=== PATIENT | female | born 1945 | race Caucasian/White ===

== ENCOUNTER 2017-05-13 09:21 | Emergency (ER) | payer OTHER ==
[~2017-05-13 09:21] MED LIST: ASPCH81X PO; BSP/10; CALCCHW PO; CRAN1TAB6 PO; DSY100 PO; EFFSR150 PO; KLN5 PO; METO-157 PO; MULT-506 PO; PRT/40 PO
[2017-05-13 09:26] VITALS: Ht 167.6 cm
[2017-05-13] MEDS ORDERED: SODIUM CHLORIDE 0.9% 1000ML 1,000 ML IV STA ×3 (09:39→13:22)
[2017-05-13] MEDS ORDERED: KETOROLAC TROMETHAMINE 30 MG/ML VIAL IV STA ×2 (09:42→15:37)
[2017-05-13] MEDS ORDERED: ONDANSETRON INJ 2 MG/ML 2 ML VIAL IV STA (09:42)
[2017-05-13] MEDS ORDERED: ALPRAZOLAM 0.5 MG TAB PO STA ×2 (09:51→14:47)
--- NOTE | 2017-05-13 10:00 | EMERGENCY ROOM VISIT NOTE ---
History Report prepared by Veronika: Laura Lindsay Under the Supervision of: Dr. Mir Sanchez M.D. First contact with patient: 09:34 Chief Complaint: URINARY SYMPTOMS Stated Complaint: BACK PAIN, NAUSEA, RT LEG PAIN-CATH'S HERSELF History of Present Illness The patient is a 72 year old female who presents to the Emergency Room with complaints of an episode of urinary symptoms starting four days ago. She describes that pain as a pressure. She currently rates her pain as a 8/10 in severity. She states that she feels like she has a full bladder, but she self- catheterized 45 minutes ago. The patient states that she was given Bactrim by her PCP on Wednesday, but has been too sick to keep it down. She states that she vomited twice this morning. The patient notes that she took Zofran 3 hours ago with no relief. She reports that she has a history of back pain and left knee pain. She reports that she did follow up with a physical therapist. The patient complains of diaphoresis, chills, nausea, abdominal pain, and constipation. The patient denies fever, cough, congestion, melena, and hematochezia. She notes a history of urinary tract infections. Source of History: patient Onset: four days ago Position: other (global) Symptom Intensity: 8/10 Quality: pressure Timing: other (episode) Associated Symptoms: + chills, + diaphoresis, + nausea, + vomiting, + abdominal pain, + back pain, No fevers, No cough, No melena, No hematochezia Note: The patient complains of constipation. The patient denies congestion. Review of Systems See HPI for pertinent positives and negatives. A total of ten systems were reviewed and were otherwise negative. Past Medical & Surgical Medical Problems: (1) Acute pyelonephritis (2) Acute urinary tract infection (3) Arthritis (4) Benign hypertension (5) Depression (6) Diverticular disease of colon (7) Gastroesophageal reflux disease (8) Hiatal hernia (9) History of - tubal ligation (10) history of uterus suspension (11) Hyperlipidemia (12) Neurogenic bladder (13) Osteoporosis (14) Pyelonephritis (15) repair of left ureter Surgical Problems: (1) History of appendectomy Family History Cancer Diabetes mellitus Heart disease Social History Smoking Status: Never Smoker Alcohol Use: none Drug Use: none Marital Status: Housing Status: lives with significant other Occupation Status: retired Current/Historical Medications Scheduled Alprazolam (Xanax), 0.25 MG PO QPM Aspirin (Aspirin Ec), 81 MG PO DAILY Cranberry (Vaccinium Macrocarp (Cranberry), 1 CAP PO TID Multivitamin (Multivitamin), 1 TAB PO DAILY Sertraline Hcl (Zoloft), 200 MG PO DAILY Scheduled PRN Ibuprofen Tab (Motrin), 800 MG PO Q8H PRN for Pain Allergies Coded Allergies: Hydrocodone (Unverified Allergy, Intermediate, HIVES, ITCH, 05/13/17) Oxycodone (Unverified Allergy, Intermediate, HIVES, ITCH, 05/13/17) LONRA Inhibitors (Verified Allergy, Unknown, Cough., 06/16/14) Codeine (Verified Allergy, Unknown, ., 06/16/14) Morphine and Related (Verified Allergy, Unknown, Shakes and vomiting., ) Nitrofurantoin (Verified Allergy, Unknown, Nausea/vomiting., 06/16/14) Physical Exam Vital Signs Date Time Temp Pulse Resp B/P (MAP) Pulse Ox O2 Delivery O2 Flow Rate FiO2 05/13/17 17:00 36.7 86 20 144/90 98 05/13/17 15:52 86 20 148/99 98 Room Air 05/13/17 14:45 94 24 167/101 96 Room Air 05/13/17 12:20 94 22 158/90 95 Room Air 05/13/17 09:26 36.7 107 18 124/80 99 Room Air Physical Exam GENERAL: Awake, alert, anxious-appearing, in no distress. Pain out of proportion to exam. HENT: Normocephalic, atraumatic. Dry mucus membranes. . EYES: Normal conjunctiva. Sclera non-icteric. NECK: Supple. No nuchal rigidity. FROM. No JVD. RESPIRATORY: Clear to auscultation. CARDIAC: Regular rate, normal rhythm. Extremities warm and well perfused. Pulses equal. ABDOMEN: Soft, non-distended. Generalized tenderness. Distractible. No rebound or guarding. No masses. RECTAL: Deferred. MUSCULOSKELETAL: Chest examination reveals no tenderness. The back is symmetrical on inspection without obvious abnormality. There is distractible left CVA tenderness to palpation. No joint edema. LOWER EXTREMITIES: Calves are equal size bilaterally and non-tender. No edema. No discoloration. No significant swelling or warmth in knees or lower extremities. NEURO: Normal sensorium. No sensory or motor deficits noted. SKIN: No rash or jaundice noted. Medical Decision & Procedures ER Provider Diagnostic Interpretation: Radiology results as stated below per my review and radiologist interpretation: CT ABD/PELVIS IV CONTRAST ONLY CLINICAL HISTORY: left flank pain - r/o renal stone LEFT-SIDED ABDOMINAL PAIN COMPARISON STUDY: 06/16/2014 TECHNIQUE: Following the IV administration of 118 mL of Optiray-320, CT scan of the abdomen and pelvis was performed from the lung bases to the proximal femurs. Images are reviewed in the axial, sagittal, and coronal planes. IV contrast was administered without complication. A dose lowering technique was utilized adhering to the principles of ALARA. CT DOSE: 457.13 mGycm FINDINGS: Lower chest: There is bibasilar dependent interstitial thickening. Liver: The contrast-enhanced liver is normal in size, contour, and attenuation. There is no intrahepatic biliary ductal dilatation. The hepatic veins and portal veins are patent. Gallbladder: Surgically absent. There is mild dilatation the common bile duct which measures a centimeter Spleen: Normal in size and attenuation. Pancreas: Unremarkable. Adrenal glands: Unremarkable. Kidneys: Each kidney demonstrates a prominent extrarenal pelvis, similar to the prior May 2014 study. There is no significant mid or distal ureteral dilatation. No bladder or ureteral calculi are visualized. There are left-sided retroperitoneal surgical clips in the region of the left ureteropelvic junction. Bowel: There are no transition zones to indicate bowel obstruction. There is moderate sigmoid diverticulosis. There is bowel wall thickening likely secondary to peridiverticular muscular hypertrophy. There are no acute peridiverticular inflammatory changes. There are no findings to indicate acute appendicitis. Peritoneum: There is no intraperitoneal free air or abdominal ascites. Vasculature: The abdominal aorta is normal in course and caliber. Adenopathy: None. Pelvic viscera: There is evidence of pelvic floor relaxation. Skeletal structures: No destructive osseous lesions are seen. IMPRESSION: 1. Diverticulosis. No evidence of acute diverticulitis 2. No evidence of bowel obstruction. No evidence of free air 3. Each kidney demonstrates a prominent extrarenal pelvis, similar to the preceding study. 4. No obstructing calculi are visualized 5. Pelvic floor relaxation. Electronically signed by: Micha Roberts M.D. 05/13/2017 12:46 PM Dictated Date/Time: 05/13/2017 12:40 PM Laboratory Results 05/13/17 10:15 Red Blood Count 4.75, Mean Corpuscular Volume 89.3, Mean Corpuscular Hemoglobin 31.8, Mean Corpuscular Hemoglobin Concent 35.6, Mean Platelet Volume 8.9, Neutrophils (%) (Auto) 77.0, Lymphocytes (%) (Auto) 14.9, Monocytes (%) (Auto) 7.6, Eosinophils (%) (Auto) 0.1, Basophils (%) (Auto) 0.1, Neutrophils # (Auto) 7.52, Lymphocytes # (Auto) 1.45, Monocytes # (Auto) 0.74, Eosinophils # (Auto) 0.01, Basophils # (Auto) 0.01 05/13/17 10:15 Test 05/13/17 10:15 05/13/17 12:20 05/13/17 14:58 White Blood Count 9.76 K/uL (4.8-10.8) Red Blood Count 4.75 M/uL (4.2-5.4) Hemoglobin 15.1 g/dL (12.0-16.0) Hematocrit 42.4 % (37-47) Mean Corpuscular Volume 89.3 fL (80-100) Mean Corpuscular Hemoglobin 31.8 pg (25-34) Mean Corpuscular Hemoglobin Concent 35.6 g/dl (32-36) Platelet Count 291 K/uL (130-400) Mean Platelet Volume 8.9 fL (7.4-10.4) Neutrophils (%) (Auto) 77.0 % Lymphocytes (%) (Auto) 14.9 % Monocytes (%) (Auto) 7.6 % Eosinophils (%) (Auto) 0.1 % Basophils (%) (Auto) 0.1 % Neutrophils # (Auto) 7.52 K/uL (1.4-6.5) Lymphocytes # (Auto) 1.45 K/uL (1.2-3.4) Monocytes # (Auto) 0.74 K/uL (0.11-0.59) Eosinophils # (Auto) 0.01 K/uL (0-0.5) Basophils # (Auto) 0.01 K/uL (0-0.2) RDW Standard Deviation 43.1 fL (36.4-46.3) RDW Coefficient of Variation 13.2 % (11.5-14.5) Immature Granulocyte % (Auto) 0.3 % Immature Granulocyte # (Auto) 0.03 K/uL (0.00-0.02) Anion Gap 10.0 mmol/L (3-11) Estimated GFR () 52.3 Estimated GFR (Non- 45.1 BUN/Creatinine Ratio 14.2 (10-20) Calcium Level 10.5 mg/dl (8.5-10.1) Total Bilirubin 0.4 mg/dl (0.2-1) Direct Bilirubin 0.1 mg/dl (0-0.2) Aspartate Amino Transf (AST/SGOT) 21 U/L (15-37) Alanine Aminotransferase (ALT/SGPT) 24 U/L (12-78) Alkaline Phosphatase 97 U/L (45-117) Total Protein 8.5 gm/dl (6.4-8.2) Albumin 4.5 gm/dl (3.4-5.0) Lipase 212 U/L (73-393) Urine Color YELLOW Urine Appearance CLEAR (CLEAR) Urine pH 8.5 (4.5-7.5) Urine Specific [place] 1.012 (1.000-1.030) Urine Protein NEG (NEG) Urine Glucose (UA) NEG (NEG) Urine Ketones TRACE (NEG) Urine Occult Blood TRACE (NEG) Urine Nitrite NEG (NEG) Urine Bilirubin NEG (NEG) Urine Urobilinogen NEG (NEG) Urine Leukocyte Esterase NEG (NEG) Urine WBC (Auto) 0 /hpf (0-5) Urine RBC (Auto) 0-4 /hpf (0-4) Urine Hyaline Casts (Auto) 0 /lpf (0-5) Urine Epithelial Cells (Auto) 5-10 /lpf (0-5) Urine Bacteria (Auto) NEG (NEG) Lactic Acid Level 1.3 mmol/L (0.4-2.0) Laboratory results reviewed by me Medications Administered Medications (Trade) Dose Ordered Sig/Debbie Route Start Time Stop Time Status Last Admin Dose Admin Sodium Chloride 1,000 ml @ 999 mls/hr Q1H1M STAT IV 05/13/17 09:39 05/13/17 10:39 DC 05/13/17 10:48 999 MLS/HR Ondansetron HCl (Zofran Inj) 4 mg NOW STAT IV 05/13/17 09:42 05/13/17 09:44 DC 05/13/17 10:15 4 MG Ketorolac Tromethamine (Toradol Inj) 30 mg NOW STAT IV 05/13/17 09:42 05/13/17 09:44 DC 05/13/17 10:15 30 MG Alprazolam (Xanax Tab) 0.25 mg NOW STAT PO 05/13/17 09:51 05/13/17 09:52 DC 05/13/17 10:14 0.25 MG Sodium Chloride 1,000 ml @ 999 mls/hr Q1H1M STAT IV 05/13/17 11:37 05/13/17 12:37 DC 05/13/17 12:09 999 MLS/HR Fentanyl Citrate (Fentanyl Inj) 50 mcg NOW STAT IV 05/13/17 11:37 05/13/17 11:39 DC 05/13/17 12:06 50 MCG Sodium Chloride 1,000 ml @ 999 mls/hr Q1H1M STAT IV 05/13/17 13:22 05/13/17 14:22 DC 05/13/17 14:54 999 MLS/HR Alprazolam (Xanax Tab) 0.25 mg NOW STAT PO 05/13/17 14:47 05/13/17 14:48 DC 05/13/17 14:54 0.25 MG Ketorolac Tromethamine (Toradol Inj) 30 mg NOW STAT IV 05/13/17 15:37 05/13/17 15:38 DC 05/13/17 15:48 30 MG ED Course 0938: The patient was evaluated in room A11B. A complete history and physical exam was performed. 0939: Ordered NSS 1000 ml @ 999 mls/hr IV. 0942: Ordered Toradol Inj 30 mg IV, Zofran Inj 4 mg IV. 0951: Ordered Xanax Tab 0.25 mg PO. 1137: Ordered Fentanyl Inj 50 mcg IV, NSS 1000 ml @ 999 mls/hr IV. 1322: Ordered NSS 1000 ml @ 999 mls/hr IV. 1447: Ordered Xanax Tab 0.25 mg PO. 1537: Ordered Toradol Inj 30 mg IV. 1640: I reevaluated the patient. Discussed results and discharge instructions: She verbalized understanding and agreement. The patient is ready for discharge. Medical Decision I reviewed the patient's past medical history, medications, and the nursing notes as described above. Differential diagnoses include UTI, interstitial cystitis, kidney stone, diverticulitis, obstruction, sciatica, neuropathy. Patient is a 72-year-old woman with a past medical history of self bladder catheterizations followed by urology who presents to emergency department with worsening suprapubic pain over the past 4-5 days per history of present illness. Arrival the patient appears anxious because she forgot to take her alprazolam this morning. Otherwise on exam the patient exhibits pain out of proportion to exam in her left CVA and abdomen. BM was yesterday. Will check labs and urine. IV fluids analgesia and antiemetics and reassess. Patient with a mildly elevated lactate to 2.7 however WBC within normal limits. Labs otherwise unremarkable including UA negative for infection. However considering the patient's elevated lactate CT scan was done was negative for any acute findings. Considering reassuring imaging and patient was clinically dry exam take likely elevated secondary to dehydration. After IV fluid hydration lactate was repeated and clear to within normal limits. Patient reassessed and was feeling improved. Still some residual pain. Symptoms likely exacerbated musculoskeletal pain in the setting of dehydration. Patient is followed closely by urology and so patient will follow up for reevaluation and possible cystoscopy for blood in urine, although likely secondary to chronic self-catheterization. Findings and plan for follow-up d/w patient. Patient agreeable and d/c'd per discharge instructions. Medication Reconcilliation Current Medication List: was personally reviewed by me Blood Pressure Screening Patient's blood pressure: Elevated blood pressure Blood pressure disposition: Elevated BP felt to be situational Impression Primary Impression: Abdominal pain Scribe Attestation The scribe's documentation has been prepared under my direction and personally reviewed by me in its entirety. I confirm that the note above accurately reflects all work, treatment, procedures, and medical decision making performed by me. Departure Information Dispostion Home / Self-Care Prescriptions Ibuprofen Tab (MOTRIN) 800 Mg Tab 800 MG PO Q8H Y for Pain for 7 Days, #21 TAB Prov: Mir Sanchez M.D. 05/13/17 Referrals No Doctor, Assigned (PCP) Forms HOME CARE DOCUMENTATION FORM, IMPORTANT VISIT INFORMATION Patient Instructions Abdominal Pain - [facility], My [facility] Additional Instructions Please follow up with your primary care physician in the next 1-3 days as well as with your urologist. Your labs showed the were dehydrated. Otherwise, your exam, lab results, CT scan did not show signs of an emergent condition at this time. Make sure to stay hydrated. Ibuprofen as needed for pain. Return to the emergency department for worsening symptoms as described in the accompanying instructions.
[2017-05-13 10:28] LABS: BASO % 0.1 %; BASO ABS # 0.01 K/uL (0-0.2); COMPLETE YES; EOS % 0.1 %; HEMATOCRIT 42.4 % (37-47); IG% 0.3 %; LYMPH % 14.9 %; LYMPH ABS # 1.45 K/uL (1.2-3.4); MEAN CELL VOLUME 89.3 fL (80-100); MEAN CORPUSCULAR HEMOGLOBIN 31.8 pg (25-34); MEAN CORPUSCULAR HGB CONC 35.6 g/dl (32-36); MEAN PLATELET VOLUME 8.9 fL (7.4-10.4); MONO % 7.6 %; PLATELET COUNT 291 K/uL (130-400); RED BLOOD COUNT 4.75 M/uL (4.2-5.4); WHITE BLOOD COUNT 9.76 K/uL (4.8-10.8)
[2017-05-13 10:48] LABS: ALT/SGPT 24 U/L (12-78); BLOOD UREA NITROGEN 17 mg/dl (7-18); BUN/CREATININE RATIO 14.2 (10-20); CALCIUM 10.5 mg/dl (8.5-10.1); CARBON DIOXIDE 22 mmol/L (21-32); CHLORIDE 101 mmol/L (98-107); GLUCOSE 107 mg/dl (70-99); POTASSIUM 3.9 mmol/L (3.5-5.1); SODIUM 133 mmol/L (136-145)
[2017-05-13 10:51] LABS: ALKALINE PHOSPHATASE 97 U/L (45-117); AST/SGOT 21 U/L (15-37)
[2017-05-13] MEDS ORDERED: ASPI81TA28 PO (11:09)
[2017-05-13] MEDS ORDERED: CRAN1TAB3 PO (11:09)
[2017-05-13] MEDS ORDERED: ALPR0.25 PO (11:09)
[2017-05-13] MEDS ORDERED: SERT100T PO (11:09)
[2017-05-13] MEDS ORDERED: MULT-506 PO (11:09)
[2017-05-13] MEDS ORDERED: FENTANYL CITRATE INJ 50 MCG/1 ML 2 ML VIAL IV STA (11:37)
[2017-05-13] MEDS ORDERED: OPTIRAY 320 IV PRN (11:45)
[2017-05-13 12:37] LABS: MANUAL MICROSCOPIC REQUIRED? NO; REVIEW REQ? NO; URINE APPEARANCE CLEAR (CLEAR); URINE BILIRUBIN NEG (NEG); URINE COLOR YELLOW; URINE NITRITE NEG (NEG); URINE PH 8.5 (4.5-7.5); URINE SPECIFIC GRAVITY 1.012 (1.000-1.030); UROBILINOGEN NEG (NEG); ZZUR CULT IF INDIC CLEAN CATCH NO
--- NOTE | 2017-05-13 12:47 | DIAGNOSTIC IMAGING REPORT ---
CT ABD/PELVIS IV CONTRAST ONLY CLINICAL HISTORY: left flank pain - r/o renal stone LEFT-SIDED ABDOMINAL PAIN COMPARISON STUDY: 06/16/2014 TECHNIQUE: Following the IV administration of 118 mL of Optiray-320, CT scan of the abdomen and pelvis was performed from the lung bases to the proximal femurs. Images are reviewed in the axial, sagittal, and coronal planes. IV contrast was administered without complication. A dose lowering technique was utilized adhering to the principles of ALARA. CT DOSE: 457.13 mGycm FINDINGS: Lower chest: There is bibasilar dependent interstitial thickening. Liver: The contrast-enhanced liver is normal in size, contour, and attenuation. There is no intrahepatic biliary ductal dilatation. The hepatic veins and portal veins are patent. Gallbladder: Surgically absent. There is mild dilatation the common bile duct which measures a centimeter Spleen: Normal in size and attenuation. Pancreas: Unremarkable. Adrenal glands: Unremarkable. Kidneys: Each kidney demonstrates a prominent extrarenal pelvis, similar to the prior May 2014 study. There is no significant mid or distal ureteral dilatation. No bladder or ureteral calculi are visualized. There are left-sided retroperitoneal surgical clips in the region of the left ureteropelvic junction. Bowel: There are no transition zones to indicate bowel obstruction. There is moderate sigmoid diverticulosis. There is bowel wall thickening likely secondary to peridiverticular muscular hypertrophy. There are no acute peridiverticular inflammatory changes. There are no findings to indicate acute appendicitis. Peritoneum: There is no intraperitoneal free air or abdominal ascites. Vasculature: The abdominal aorta is normal in course and caliber. Adenopathy: None. Pelvic viscera: There is evidence of pelvic floor relaxation. Skeletal structures: No destructive osseous lesions are seen. IMPRESSION: 1. Diverticulosis. No evidence of acute diverticulitis 2. No evidence of bowel obstruction. No evidence of free air 3. Each kidney demonstrates a prominent extrarenal pelvis, similar to the preceding study. 4. No obstructing calculi are visualized 5. Pelvic floor relaxation. Electronically signed by: Micha Roberts M.D. 05/13/2017 12:46 PM Dictated Date/Time: 05/13/2017 12:40 PM
[2017-05-13] MEDS ORDERED: IBUP-1451 PO (16:36)
[2017-05-13 17:00] VITALS: BP 144/90; PULSE 86; TEMP 36.7; O2SAT 98
== END 2017-05-13 17:00 | disposition home or self-care (01) ==
LOC: C.EDB 09:25 → C.EDA 17:00
DX: R10.9 Unspecified abdominal pain (principal); K57.90 Diverticulosis of intestine, part unspecified, without perforation or abscess without bleeding; M54.9 Dorsalgia, unspecified; R11.2 Nausea with vomiting, unspecified; K59.00 Constipation, unspecified; M19.90 Unspecified osteoarthritis, unspecified site; I10 Essential (primary) hypertension; F32.9 Major depressive disorder, single episode, unspecified; K21.9 Gastro-esophageal reflux disease without esophagitis; K44.9 Diaphragmatic hernia without obstruction or gangrene; Z98.51 Tubal ligation status; E78.5 Hyperlipidemia, unspecified; M81.0 Age-related osteoporosis without current pathological fracture; N31.9 Neuromuscular dysfunction of bladder, unspecified; Z79.82 Long term (current) use of aspirin; Z83.3 Family history of diabetes mellitus

== ENCOUNTER 2018-12-27 07:43 | Inpatient (IN) ==
--- NOTE | 2018-11-15 08:55 | Anesthesiology Consultation ---
Date of Service November 15, 2018 Assessment & Plan (1) Encounter for pre-operative examination: Plan: - Will plan to repeat BMP the AM day of surgery. Chart Review Chart Review: Acceptable Risk for Surgery and Patient seen in Pre Admission Testing Consults Requested none Teaching & Discussion Pre-Anesthesia Teaching/Discussion Notes: Instructed NPO after midnight before surgery, except medications with 15 cc of water. Medication instructions provided according to the PAT guidelines. History Surgery Operation Date: 11/29/18 10:15 Proposed Procedures p Left Total Knee Arthroplasty - Farhan Blackmon DO Height/Weight Height: 5 ft 5 in Weight: 69.6 kg Allergies Allergy/AdvReac Type Severity Reaction Status Date / Time hydrocodone Allergy Intermediate HIVES, ITCH Verified 11/04/18 15:26 oxycodone Allergy Intermediate HIVES, ITCH Verified 11/04/18 15:26 codeine Allergy Unknown NAUSEA, Verified 11/04/18 15:26 VOMITING, ITCHING morphine Allergy Unknown SEVERE Verified 11/04/18 15:26 CONSTIPATION nitrofurantoin AdvReac Unknown Nausea/vomi Verified 11/04/18 15:26 ting. Medications Home Medications Medication Instructions Recorded Confirmed Last Taken calcium carbonate [Calcium 500] 500 mg PO QAM 11/04/18 11/04/18 Unknown cranberry 500 mg PO TID 11/04/18 11/04/18 Unknown multivitamin 1 cap PO QAM 11/04/18 11/04/18 Unknown omeprazole magnesium [Prilosec OTC] 20 mg PO QAM 11/04/18 11/04/18 Unknown sertraline 200 mg PO QAM 11/04/18 11/04/18 Unknown alprazolam [Xanax] 0.5 mg PO BID PRN 11/15/18 11/15/18 Unknown Past Medical History Medical History GERD (gastroesophageal reflux disease) Gastroparesis Hiatal hernia History of neurogenic bladder PT CAN URINATE ON OWN SMALL AMTS. PT SELF CATH'S TID. Osteoarthritis Transient ischemic attack (TIA) X3. LAST TIA APPROX 4-5 YEARS AGO. NO RESIDUAL EFFECT. Past Surgical History Surgical History History of bilateral tubal ligation History of cholecystectomy History of kidney surgery PT HAD A SURGERY IN FOR AN OBSTRUCTION/'KINK" OF THE URETER, INSISION MADE THROUGH FLANK Status post wrist surgery RIGHT WRIST - DR. ROSS. Past Anesthesia History No Hx of Anesthesia Complications and No Family Hx of Anesthesia Complications History of PONV No Motion Sickness Screening History of Motion Sickness: No Social History Smoking Status: Never smoker Do You Dip or Chew Tobacco: No Hx Alcohol Use: Yes Alcohol type: other alcohol intake frequency: holidays/special occasions only Alcohol Intake Frequency Comment: RARE Hx Substance Use: No substance use type: does not use Exercise / Class Metabolic Activity II 4-5 Yardwork/Stairs/Walk up hill (Minimal due to knee pain. Able to climb FOS, although it is painful in her knees. Denies CP or SOB. ) Review of Systems Patient denies chest pain, shortness of breath, dyspnea on exertion, cough, wheezing, palpitations. +joint pain (knees) +acid reflux (controlled by medications) Physical Exam Vital Signs BP: 138/91 P: 95 R: 18 T: 98.2 SPO2: 98% on RA ENMT Mouth: + dentures (Full set on top and partial on bottom) Thyromental Distance: > or= 3.5 Finger Breadths (4) Mallampati Class: II Neck normal visual inspection and trachea midline; neck extension not limited Respiratory normal respiratory effort Auscultation: lungs clear to auscultation bilaterally Cardiovascular Rate/Rhythm: regular rate and regular rhythm Heart Sounds: no murmur Vessels: no carotid bruit Neurologic moves all extremities Psychiatric Orientation: alert and oriented x 3 Testing Electrocardiogram Date: 11/15/18 Findings: + NSR @ (84) and + no change from (06/28/14) Chest X-Ray Date: 11/15/18 Findings: + NAD FINDINGS: The cardiac and mediastinal contours are normal. There is no evidence of focal pulmonary consolidation. There is no evidence of failure. No pleural effusions are visualized. There is a nonspecific calcification visualized within the upper anterior abdomen on the lateral projection. There is no corresponding finding on the PA film, and therefore this is potentially related to an overlying artifact. IMPRESSION: No active disease in the chest. Laboratory Results 11/15/18 09:40 11/15/18 09:40 Blood Type O Positive 11/15/18 09:40 Antibody Screen NEGATIVE 11/15/18 09:40 PT 11.0 Seconds (9.0-12.0) 11/15/18 09:40 INR 1.1 (0.9-1.1) 11/15/18 09:40 APTT 31.2 Seconds (21.0-31.0) H 11/15/18 09:40 Hemoglobin A1c 5.6 % (4.5-5.6) 11/15/18 09:40 Urine Color Yellow 11/15/18 09:40 Urine Appearance Clear (Clear) 11/15/18 09:40 Urine pH 6.5 (4.5-7.5) 11/15/18 09:40 Ur Specific [place] 1.013 (1.000-1.030) 11/15/18 09:40 Urine Protein Negative (Negative) 11/15/18 09:40 Urine Glucose (UA) Negative (Negative) 11/15/18 09:40 Urine Ketones 2+ (Negative) H 11/15/18 09:40 Urine Nitrite Negative (Negative) 11/15/18 09:40 Ur Leukocyte Esterase 2+ (Negative) H 11/15/18 09:40 Urine WBC (Auto) 10-30 /hpf (0-5) H 11/15/18 09:40 Urine RBC (Auto) 0-4 /hpf (0-4) 11/15/18 09:40 U Hyaline Cast (Auto) 1-5 /lpf (0-5) 11/15/18 09:40 U Epithel Cells (Auto) 0-5 /lpf (0-5) 11/15/18 09:40 Urine Bacteria (Auto) 4+ (Negative) H 11/15/18 09:40 11/15/18 09:40 Urine Culture - Final Urine,Clean Catch Escherichia coli ESBL Dr. Blackmon's office notified of UTI, elevated WBC, low NA and low Cl. Will plan to repeat BMP the AM day of surgery.
--- NOTE | 2018-11-15 08:56 | PAT Medication Instructions ---
Medication Instructions Date of Service November 15, 2018 Home Medications calcium carbonate [Calcium 500] 500 mg PO QAM cranberry 500 mg PO TID multivitamin 1 cap PO QAM omeprazole magnesium [Prilosec] 20 mg PO QAM sertraline 200 mg PO QAM alprazolam [Xanax] 0.5 mg PO BID NEEDED STOP taking 2 weeks before surgery calcium carbonate [Calcium 500] 500 mg PO QAM DO NOT take the morning of surgery calcium carbonate [Calcium 500] 500 mg PO QAM multivitamin 1 cap PO QAM Take morning of surgery With a small sip of water, OTHERWISE NOTHING TO EAT OR DRINK AFTER MIDNIGHT: omeprazole magnesium [Prilosec] 20 mg PO QAM sertraline 200 mg PO QAM alprazolam [Xanax] 0.5 mg PO BID NEEDED Take evening before surgery alprazolam [Xanax] 0.5 mg PO BID NEEDED Other Notes If you have any questions please call us at [phone] or [phone] or [phone] or [phone]
--- NOTE | 2018-11-15 10:15 | XRay Report ---
XR chest Pre-admission PA/Lat CLINICAL HISTORY: Preoperative chest COMPARISON STUDY: 01/17/2014 FINDINGS: The cardiac and mediastinal contours are normal. There is no evidence of focal pulmonary co nsolidation. There is no evidence of failure. No pleural effusions are visualized.[ There is a nonspe cific calcification visualized within the upper anterior abdomen on the lateral projection. There is no corresponding finding on the PA film, and therefore this is potentially related to an overlying ar tifact. IMPRESSION: No active disease in the chest. Electronically signed by: Micha Roberts M.D. 11/15/2018 10:13 AM
[2018-11-15 10:56] LABS: Basophils # (auto) 0.01 K/uL (0-0.2); Basophils % (auto) 0.1 %; Eosinophils # (auto) 0.11 K/uL (0-0.5); Hematocrit (blood only) 41.8 % (37-47); Hemoglobin 14.5 g/dL (12.0-16.0); Immature Granulocytes # (auto) 0.02 K/uL (0.00-0.02); Immature Granulocytes % (auto) 0.2 %; Lymphocytes # (auto) 1.52 K/uL (1.2-3.4); Lymphocytes % (auto) 13.4 %; Mean Corpuscular Hgb Conc 34.7 g/dL (32-36); Mean Corpuscular Volume 89.9 fL (80-100); Mean Platelet Volume 9.6 fL (7.4-10.4); Monocytes # (auto) 0.98 K/uL (0.11-0.59); Monocytes % (auto) 8.6 %; Neutrophils # (auto) 8.71 K/uL (1.4-6.5); Neutrophils % (auto) 76.7 %; Platelet Count 261 K/uL (130-400); RDW Coefficient of Variation 14.3 % (11.5-14.5); RDW Standard Deviation 46.8 fL (36.4-46.3); Red Blood Count 4.65 M/uL (4.2-5.4); White Blood Count 11.35 K/uL (4.8-10.8)
[2018-11-15 11:04] LABS: Appearance Urine Clear (Clear); Bacteria Urine Automated 4+ (Negative); Bilirubin Urine Negative (Negative); Blood Urine Negative (Negative); Color Urine Yellow; Epithelial Cell Urine Auto 0-5 /lpf (0-5); Glucose Urine UA Negative (Negative); Ketones Urine 2+ (Negative); Leukocyte Esterase Urine 2+ (Negative); Nitrite Urine Negative (Negative); Protein Urine Negative (Negative); RBC Urine Automated 0-4 /hpf (0-4); Specific Gravity Urine 1.013 (1.000-1.030); Urobilinogen Urine Negative (Negative); pH Urine 6.5 (4.5-7.5)
[2018-11-15 11:22] LABS: BUN Creatinine Ratio 16.2 (10-20); Calcium 9.2 mg/dl (8.5-10.1); Creatinine Clr Calc Pharmacy 61.3 ml/min; Est GFR (African American) 84.8; Est GFR (Non-African American) 73.1; Potassium 3.4 mmol/L (3.5-5.1)
[2018-11-15 11:37] LABS: INR 1.1 (0.9-1.1); Partial Thromboplastin Ratio 1.2; Partial Thromboplastin Time 31.2 Seconds (21.0-31.0)
[2018-11-15 11:51] LABS: Estimated Average Glucose 114 mg/dl; Hemoglobin A1C 5.6 % (4.5-5.6)
--- NOTE | 2018-12-26 17:44 | History & Physical Report ---
Date of Service December 26, 2018 Assessment & Plan (1) Left knee DJD: I have indicated the patient for left total knee replacement. The risks, benefits and complications of surgery were explained to the patient which include but not limited to infection, acute blood loss, DVT/PE, injury to nerv es, vessels, bone, soft tissue, arthrofibrosis, chronic pain, failure of the prosthesis, knee dislocation, leg length discrepancy, need for additional surgery, cardiac and pulmonary events and . The patient wished to proceed with surgery and informed consent was obtained at this time. We will plan for ASA BID post-operatively for DVT prophylaxis. Upon discharge the patient will be discharged home with home health services. Appropriate clearances by PCP and Urology were obtained. Patient is Jeh[employer]'s Witness, consented for refusal of blood products. Understands risks. History of Present Illness Chief Complaint: Left knee pain/djd Primary Care Provider: Catalino Espinosa The patient is a 73 year old female who presents with complaints of severe left knee pain and DJD. The patient has failed outpatient conservative treatments to this point which included NSAIDs, corticosteroid and MARTI injections, HEP and physical therapy. The patient's pain and limited function have progressed to the point where they severely hinder their activities of daily living and they no longer tolerate exercise programs. They are requesting to proceed with total knee replacement surgery. Allergies Allergy/AdvReac Type Severity Reaction Status Date / Time hydrocodone Allergy Intermediate HIVES, ITCH Verified 12/27/18 08:16 oxycodone Allergy Intermediate HIVES, ITCH Verified 12/27/18 08:16 codeine Allergy Unknown NAUSEA, Verified 12/27/18 08:16 VOMITING, ITCHING morphine Allergy Unknown SEVERE Verified 12/27/18 08:16 CONSTIPATION nitrofurantoin AdvReac Unknown Nausea/vomi Verified 12/27/18 08:16 ting. Home Medications Home Medications Medication Instructions Recorded Confirmed Type calcium carbonate [Calcium 500] 500 mg PO QAM 11/04/18 12/27/18 History cranberry 500 mg PO TID 11/04/18 12/27/18 History multivitamin 1 cap PO QAM 11/04/18 12/27/18 History omeprazole magnesium [Prilosec OTC] 20 mg PO QAM 11/04/18 12/27/18 History sertraline 200 mg PO QAM 02/08/19 04/02/19 History alprazolam [Xanax] 0.5 mg PO BID PRN 11/15/18 12/27/18 History Past Med/Surg History Medical History GERD (gastroesophageal reflux disease) Gastroparesis Hiatal hernia History of neurogenic bladder PT CAN URINATE ON OWN SMALL AMTS. PT SELF CATH'S TID. Osteoarthritis Refusal of blood transfusions as patient is [facility] Transient ischemic attack (TIA) X3. LAST TIA APPROX 4-5 YEARS AGO. NO RESIDUAL EFFECT. Surgical History History of bilateral tubal ligation History of cholecystectomy History of kidney surgery PT HAD A SURGERY IN FOR AN OBSTRUCTION/'KINK" OF THE URETER, INSISION MADE THROUGH FLANK Status post wrist surgery RIGHT WRIST - DR. ROSS. Social History Preferred Language: Korean Communication Ability: Effective Firer Diesel Locomotive Required: No Beliefs That Will Affect Care: Tenriism Current Living Situation: Spouse Other Information That Helps Us Care for You: No Feels Safe at Home: Yes Safety Concerns: Feels Safe At This Time Smoking Status: Never smoker Hx Alcohol Use: Yes Hx Substance Use: No Review of Systems All systems reviewed & are unremarkable except as noted in HPI & below Physical Exam Physical Exam: LLE NVSI +EHL/FHL/TA/GS SILT grossly, +2 DP pulse, compartments soft NT, painful limited ROM, 0-90 degrees of flexion. Constitutional: WD/WN, vitals as above Eyes: PERRL, conjunctivae normal, anicteric sclerae ENMT: external ear and nose normal, oropharynx normal Neck: trachea midline, no thyromegaly Respiratory: normal respiratory effort, lungs clear to auscultation Cardiovascular: RRR, no murmur, no edema Gastrointestinal (Abdomen): normal bowel sounds, soft, nontender, no hepatosplenomegaly Musculoskeletal: no cyanosis or clubbing, extremities motor strength 5/5 Skin: no rashes, warm and dry Neurologic: patellar DTR's 2+ bilat, sensation intact Psychiatric: A+Ox3, euthymic affect Lymphatic: no cervical or axillary lymphadenopathy Results & Data Diagnostic Findings Multiple views of the knee demonstrates severe tricompartmental DJD with complete loss of the medial joint space. +osteophytes, +sclerosis, +subchondral cysts.
[~2018-12-27 07:43] MED LIST changes: +ACETAMINOPHEN 500 MG TAB PO SCH; -ASPCH81X PO; -BSP/10; +BUPIVACAINE 0.5 % 5 MG/1 ML PF 10ML VIAL ONE; -CALCCHW PO; +CEFAZOLIN 1000MG 1,000 MG/7.5 ML SYR IV SCH; -CRAN1TAB6 PO; +CeleBREX 200 MG CAP PO SCH; -DSY100 PO; -EFFSR150 PO; +FAMOTIDINE 20 MG TAB PO SCH; +GABAPENTIN 300 MG PO SCH; -KLN5 PO; +LR 500ML BOLUS, THEN 15ML/HR IV SCH; -METO-157 PO; -MULT-506 PO; -PRT/40 PO; +ROPIVACAINE 0.5% 5 MG/ML 30 ML VIAL ONE; +ROPIVACAINE 0.5% HCL/PF 150 MG, BUPIVACAINE 0.5% MPF 30 ML, EPINEPHrine 30MG/30ML (OR U... INFIL SCH; +TRANEXAMIC ACID 1,000 MG **IV Intra-op IV SCH; +TRANEXAMIC ACID 1,000 MG **IV Pre-op IV SCH; +dexAMETHasone 4 MG TAB PO SCH
[2018-12-27] MEDS ORDERED: BACITRACIN INJ 50,000 UNIT VIAL ONE (08:27)
[2018-12-27] MEDS ORDERED: ORTHO JOINT ANESTHETIC ONE (08:27)
[2018-12-27] MEDS ORDERED: POVIDONE-IODINE OP SOLN 30 ML BTL ONE (08:27)
[2018-12-27 09:20] LABS: BUN Creatinine Ratio 14.6 (10-20); Calcium 10.2 mg/dl (8.5-10.1); Creatinine Clr Calc Pharmacy 53.3 ml/min; Est GFR (African American) 75.5; Est GFR (Non-African American) 65.2; Potassium 4.2 mmol/L (3.5-5.1)
[2018-12-27] MEDS ORDERED: LIDOCAINE HCL 2% 2 ML VIAL/AMP(20MG/ML) INFIL ONE (09:43)
[2018-12-27] MEDS ORDERED: PROPOFOL IV EMULSION 10 MG/ML 20 ML VIAL IV ONE (09:43)
[2018-12-27] MEDS ORDERED: MIDAZOLAM HCL 1 MG/ML 2ML VIAL ONE (09:44)
[2018-12-27] MEDS ORDERED: fentaNYL citrate 100 MCG/2 ML VIAL ONE ×3 (09:44→11:44)
[2018-12-27] MEDS ORDERED: ATROPINE SULFATE 0.1 MG/ML 10ML SYR IV PRN (09:48)
[2018-12-27] MEDS ORDERED: fentaNYL citrate 100 MCG/2 ML VIAL IV PRN (09:48)
[2018-12-27] MEDS ORDERED: ePHEDrine sulfate 50 MG/ML AMP IV PRN (09:48)
[2018-12-27] MEDS ORDERED: ONDANSETRON INJ 2 MG/ML 2 ML VIAL IV PRN ×2 (09:48→15:12)
[2018-12-27] MEDS ORDERED: EPINEPHrine INJ 1 MG/ML AMP ONE (10:35)
--- NOTE | 2018-12-27 10:59 | History & Physical Bridge Note ---
Date of Service December 27, 2018 History & Physical Bridge Note I have examined the patient, reviewed the History & Physical and in the interval since the performance of the History & Physical I have noted the following changes of clinical significance: no changes noted
[2018-12-27] MEDS ORDERED: ePHEDrine sulfate 50 MG/ML AMP ONE (12:19)
[2018-12-27] MEDS ORDERED: PHENYLEPHRINE 100MCG/ML 5ML SYR ONE (12:19)
[2018-12-27] MEDS ORDERED: ePHEDrine sulfate 50 MG/ML SYR ONE (12:20)
--- NOTE | 2018-12-27 13:21 | Post Operative Brief Note ---
Immediate Post Op Note v1 Date of Surgery December 27, 2018 Pre & Post Diagnosis Operation Date: 11/29/18 09:25 <No data on this case meets the specified criteria> Operation Date: 12/27/18 10:15 Pre-Op Diagnosis: Left Knee Degenerative Joint Disease Post-Op Diagnosis: Left Knee Degenerative Joint Disease Procedure Operation Date: 11/29/18 09:25 <No data on this case meets the specified criteria> Operation Date: 12/27/18 10:15 Actual Procedures p Left Total Knee Arthroplasty(Left) - Farhan Blackmon DO Surgeon Farhan Blackmon, Tugboat Operator Rios Liriano Estimated Blood Loss 35 Findings Consistent with Post-Op Diagnosis Fluids 1500 cc LR Specimens proximal tibia, distal femur bone fragments Drains Ramírez Catheter (16fr silicone ramírez catheter placed without difficulty; ramírez demonstrates clear yellow urine. Output measured and recorded by anesthesia.) Anesthesia Type General Complications none Disposition Disposition: Recovery Room Overlapping Procedure I was present for: the critical portions of procedure. I was immediately available: during the entire case. Back up surgeon: was not required during procedure.
[2018-12-27] MEDS ORDERED: NEOSTIGMINE METHYLSULFATE 5 MG/5 ML SYR ONE (13:31)
[2018-12-27] MEDS ORDERED: GLYCOPYRROLATE 0.2 MG/ML VIAL ONE (13:31)
[2018-12-27] MEDS ORDERED: ROCURONIUM BROMIDE 10 MG/ML 5 ML VIAL ONE (13:35)
--- NOTE | 2018-12-27 13:50 | Operative Report ---
Post Operative Report Pre & Post Diagnosis Operation Date: 11/29/18 09:25 <No data on this case meets the specified criteria> Operation Date: 12/27/18 10:15 Pre-Op Diagnosis: Left Knee Degenerative Joint Disease Post-Op Diagnosis: Left Knee Degenerative Joint Disease Procedure Operation Date: 11/29/18 09:25 <No data on this case meets the specified criteria> Operation Date: 12/27/18 10:15 Actual Procedures p Left Total Knee Arthroplasty(Left) - Farhan Blackmon DO Surgeon Farhan Blackmon, Customer Service Representative Teller Rios Liriano Estimated Blood Loss 35 Findings Consistent with Post-Op Diagnosis Specimens proximal tibia, distal femur bone fragments Drains none Anesthesia Type General Regional Complications none Disposition Disposition: Recovery Room Indications The patient is a 73-year-old female presents with long history of severe left knee tricompartmental DJD and failed outpatient conservative treatments including NSAIDs, bracing, injections and home walking/exercise program. The patient's symptoms have progressed to the point where it has been difficult to perform normal activities of daily living. I have indicated the patient for a left total knee arthroplasty, the risks and benefits and complications of the procedure include but are not limited to infection bleeding damage to bone, nerves, vessels, surrounding soft tissue, blood clots, loss of function, leg length discrepancy, dislocation, failure of the components, need for additional surgery and . The patient wished to proceed with surgery at this time and informed consent was obtained. Appropriate clearances were obtained. Patient is a [employer] and she consented to not receive any blood products during her hospital stay. She understands the risks. Description of Procedure Following induction of general/regional anesthesia, a tourniquet was applied to the proximal aspect of the thigh and the patient's left leg was prepped and draped in the usual sterile manner. A timeout was performed, patient identified and site joão confirmed. Appropriate pre-operative IV antibiotics were given. The limb was exsanguinated with an Esmarch bandage and tourniquet was inflated to 300 mmHg. A longitudinal midline incision was made over the anterior knee. Subcutaneous tissue was sharply dissected down to fascia. Electrocautery was used for hemostasis. Next a parapatellar arthrotomy was performed. Patella was everted and the knee was flexed. A Martinez retractor was used to expose the synovium above on the anterior aspect of the femur and removed down to bone. Next, the anterior fat pad was removed to aid in visualization. The medial face of the tibia was cleared of soft tissue first with a Bovie and a holland elevator. This tissue was retracted posteriorly using a blunt Hohmann. Next, the extra-medullary tibial cutting guide was placed to the anterior aspect of the tibia. The tibia resection level was set taking 2mm from the defective tibial condyle. Resection depth was once again confirmed with miranda wing. The medial and lateral collateral ligament was protected with two Hohmann retractors. The tibia guide was removed and proximal tibial bone fragment removed utilizing straight osteotome, electrocautery and Anusha. Next, the distal femur intramedullary canal was accessed utilizing the step drill. The intramedullary distal femur cutting guide was placed into the canal and pinned into place. The distal femur was cut on the 5 degree setting. Next the cutting guide was removed and the femur was sized. Care was taken to ensure appropriate outside salesperson all rotation and 3 degree holes were drilled. A size 7 4-in-1 cutting block was placed on the distal end of the femur and secured into place with two short headed screws. Two bent Hohmann retractors were placed to protect the medial and lateral collateral ligaments. The oscillating saw was used to cut anterior, posterior, anterior chamfer and posterior chamfer. The four and one cutting block was removed and bone fragments excised. Laminar chief dog license inspector was placed laterally and the ACL and PCL were removed followed by the medial meniscus and posterior medial osteophytes. Aquamantys was utilized for any posterior medial bleeders and Orthomix injected into the posterior medial capsule. A laminar chief dog license inspector was then placed in the medial compartment and the lateral meniscus and posterior osteophytes were removed. Aquamantys was utilized for any posterior lateral bleeders and Orthomix injected into the posterior lateral capsule. Next, drop cheryl and spacer block were placed with the leg in flexion and extension to assess alignment and flexion/extension gaps. Next, the proximal tibia was assessed and two bent Hohmans were placed medial and lateral to aid in visualization. The appropriate tibia size and rotation was selected and a size E tibial plate was pinned into place with appropriate rotation. Preparation of the tibia was completed utilizing the matching tibial drill and broach. I then turned my attention back to the distal femur in a trial femoral component was impacted into place. Appropriate femoral width was assessed and selected. Next the femur PS box cut guide was placed and cut made with the reciprocal saw and the PS box provisional placed. A trial size 10 PS tibia articular tray was placed and varus-valgus balance assessed in 0 degrees of extension and 30, 60 and 90 degrees of flexion. A final tibial articular surface size 10 PS was chosen. Assess was gained to the patella and caliper utilized to measure width. The patella reamer was utilized and remaining bone removed with oscillating saw. A size 35 patella button was selected and the patella pegs drilled. Trial patella button was placed and tracking was assessed. The knee was found to be well balanced, well aligned with excellent patella tracking. The trials were removed and final components were obtained and assembled. The knee was irrigated copiously with sterile saline solution mixed with bacitracin. Access to the proximal tibia was once again obtained utilizing to the Hohmans a nd the proximal tibia and distal femur were dried with lap sponges. The final components were cemented into place and all excess cement was removed. A trial tibial articular surface was placed while cemented hardened. Knee stability was once again assessed and the final component inserted. The knee was injected with the remaining Orthomix which includes a combination of Ropivicaine 0.5% 150mg, Bupivicaine 0.5%/Epinephrine 1:200,000 30ml, Toradol 30mg, Dexamethasone 4mg, Ketamine 10mg, Clonidine 100mcg and NSS 30ml solution and irrigated once more with sterile saline solution mixed with bacitracin. The capsulotomy was closed with #1 Vicryl followed by subcutaneous closure with 2-0 Vicryl suture and a 3-0 V-lock suture. Skin closure was performed using Prineo dermabond dressing followed by Craig, 4 x 4s and lloyd wrap. Tourniquet was deflated at 107 minutes. The patient tolerated the procedure well and was taken to the PACU in stable condition. Due to the complex nature of the procedure, the entire surgery was performed with the operational assistance of Rios Liriano PA-C. The veterinary technician assistant, under direct supervision, was involved in the actual performance of all aspects of the surgical procedure including patient positioning, hemostasis, tissue retraction, instrument management and wound closure. I attest to the content of the Intraoperative Record and any orders documented therein. Any exceptions are noted below.
--- NOTE | 2018-12-27 14:07 | XRay Report ---
XR knee LT 2V routine HISTORY: 73 years-old Female Surgical Post Op left knee total joint arthroplasty. History of degener ative joint disease COMPARISON: None available TECHNIQUE: 2 views of the left knee FINDINGS: Left knee total joint arthroplasty with patellar resurfacing. Alignment is satisfactory without acute fracture or retained foreign body. Expected postsurgical soft tissue swelling and deep tissue air wi th surgical drainage catheter. IMPRESSION: Left knee total joint arthroplasty and patella resurfacing with satisfactory alignment. The above report was generated using voice recognition software. It may contain grammatical, syntax o r spelling errors. Electronically signed by: Fritz Koch M.D. 12/27/2018 2:06 PM
--- NOTE | 2018-12-27 14:39 | Anesthesiology Progress Note ---
Date of Service December 27, 2018 Anesthesia Post Procedure Vital Signs Vital Signs: Temp Pulse Pulse Resp BP Pulse Ox 12/27/18 14:20 36.4 C L 81 16 124/65 98 12/27/18 14:10 83 14 124/75 98 12/27/18 14:00 96 H 15 137/59 L 99 12/27/18 13:51 36.6 C 98 H 16 121/88 95 12/27/18 08:20 36.6 C 89 20 137/87 96 Notes Mental Status: alert / awake / arousable and participated in evaluation Patient Amnestic to Procedure: Yes Nausea / Vomiting: adequately controlled Pain: adequately controlled Airway Patency, RR, SpO2: stable & adequate BP & HR: stable & adequate Hydration State: stable & adequate Anesthetic Complications: no major complications apparent and Pt Satisfied with anesthetic care
[2018-12-27] MEDS ORDERED: OXYCODONE HCL IR 5 MG TAB (IMMEDIATE RELEASE) PO PRN (15:12)
[2018-12-27] MEDS ORDERED: HYDROmorphone INJ 0.5 MG/0.5 ML SYR IV PRN (15:12)
[2018-12-27] MEDS ORDERED: NALOXONE HCL 0.4 MG/1 ML VIAL/CARP IV PRN (15:12)
[2018-12-27] MEDS ORDERED: BISACODYL 10 MG SUPP PR PRN (15:12)
[2018-12-27] MEDS ORDERED: MAGNESIUM HYDROXIDE SUSP 30 ML UDC PO PRN (15:12)
[2018-12-27] MEDS ORDERED: METOCLOPRAMIDE HCL INJ 5 MG/ML 2 ML VIAL IV PRN (15:12)
[2018-12-27] MEDS: SODIUM CHLORIDE 0.9% 1000ML 1,000 ML IV SCH (16:49)
[2018-12-27] MEDS: KETOROLAC TROMETHAMINE 15 MG/ML VIAL IV SCH ×2 (16:50→21:11)
[2018-12-27] MEDS: ACETAMINOPHEN 500 MG TAB PO SCH ×2 (16:50→21:11)
[2018-12-27] MEDS ORDERED: SENNA 8.6 MG TAB PO SCH (21:00)
[2018-12-27] MEDS: CEFAZOLIN 2000MG 2,000 MG/15 ML SYR IV SCH (21:09)
--- NOTE | 2018-12-27 21:10 | Orthopedic Progress Note ---
Date of Service December 27, 2018 Assessment & Plan (1) Left knee DJD: s/p L TKA -Ancef x 24 -DVT ppx: ASA BID, SCDs, TEDS -WBAT LLE -PT/OT -PO XR - Well aligned well fixed orthopedic prothesis without fracture/dislocation -am labs -DC planning - home with HH Subjective Post Operative Progress Note Patient seen sitting up in bed, comfortable, denies complaints, pain well controlled, no acute issues. Physical Exam Vital Signs (Past 24 Hours): Last Vital Signs Temp 36.5 C 12/27/18 19:16 Pulse 93 H 12/27/18 19:16 Resp 18 12/27/18 19:16 BP 145/88 H 12/27/18 19:16 Pulse Ox 92 12/27/18 19:16 Physical Exam: LLE NVSI +EHL/FHL/TA/GS SILT grossly, +2 DP pulse, compartments soft NT, dressing cdi. Constitutional: WD/WN, vitals as above
[2018-12-27] MEDS: DOCUSATE SODIUM 100 MG CAP PO SCH (21:11)
[2018-12-27] MEDS ORDERED: ALPRAZolam 0.5 MG TABLET PO PRN (22:43)
[2018-12-28] MEDS: ACETAMINOPHEN 500 MG TAB PO SCH (00:05)
[2018-12-28] MEDS: SODIUM CHLORIDE 0.9% 1000ML 1,000 ML IV SCH (00:06)
[2018-12-28] MEDS: TRAMADOL HCL 50 MG TABLET PO PRN ×2 (01:28→11:28)
[2018-12-28] MEDS: KETOROLAC TROMETHAMINE 15 MG/ML VIAL IV SCH ×2 (03:40→08:51)
[2018-12-28] MEDS: CEFAZOLIN 2000MG 2,000 MG/15 ML SYR IV SCH (03:40)
[2018-12-28 06:48] LABS: Hematocrit (blood only) 34.1 % (37-47); Hemoglobin 11.8 g/dL (12.0-16.0); Mean Corpuscular Hgb Conc 34.6 g/dL (32-36); Mean Corpuscular Volume 89.5 fL (80-100); Mean Platelet Volume 9.2 fL (7.4-10.4); Platelet Count 212 K/uL (130-400); RDW Coefficient of Variation 14.3 % (11.5-14.5); RDW Standard Deviation 47.1 fL (36.4-46.3); Red Blood Count 3.81 M/uL (4.2-5.4); White Blood Count 12.44 K/uL (4.8-10.8)
[2018-12-28 07:20] LABS: BUN Creatinine Ratio 18.5 (10-20); Calcium 8.8 mg/dl (8.5-10.1); Creatinine Clr Calc Pharmacy 60.9 ml/min; Est GFR (African American) 88.8; Est GFR (Non-African American) 76.6; Potassium 3.7 mmol/L (3.5-5.1)
--- NOTE | 2018-12-28 08:12 | Anesthesiology Progress Note ---
Date of Service December 28, 2018 Anesthesia Post Procedure Vital Signs Vital Signs: Temp Pulse Pulse Resp BP Pulse Ox 12/28/18 11:08 37 C 78 18 112/75 96 12/28/18 08:16 37.2 C 82 18 130/77 97 12/28/18 03:38 36.9 C 70 18 130/70 96 12/27/18 23:25 36.8 C 93 H 17 147/75 H 92 12/27/18 19:16 36.5 C 93 H 18 145/88 H 92 12/27/18 17:48 36.4 C L 98 H 16 125/67 93 12/27/18 16:47 36.4 C L 87 16 129/76 99 12/27/18 15:51 36.8 C 82 18 120/78 99 12/27/18 15:09 36.4 C L 79 15 123/79 98 12/27/18 14:40 36.6 C 90 16 119/77 95 12/27/18 14:20 36.4 C L 81 16 124/65 98 12/27/18 14:10 83 14 124/75 98 12/27/18 14:00 96 H 15 137/59 L 99 12/27/18 13:51 36.6 C 98 H 16 121/88 95 Pain Intensity Right Leg: Pain Intensity: 0 Notes Mental Status: alert / awake / arousable and participated in evaluation Patient Amnestic to Procedure: Yes Nausea / Vomiting: adequately controlled Pain: adequately controlled Airway Patency, RR, SpO2: stable & adequate BP & HR: stable & adequate Hydration State: stable & adequate Anesthetic Complications: no major complications apparent Notes: patient c/o dull constant pain in RLE (posterior leg from butt to heel) post SAB attempt yesterday. Denies any weakness or numbness in leg. Neymar there and aware, not concerned. Dr. Escobar also made aware. She is considering a dose of steroid and will come see patient today. Patient reports pain improving with getting OOB.
[2018-12-28] MEDS: DOCUSATE SODIUM 100 MG CAP PO SCH (08:50)
[2018-12-28] MEDS ORDERED: SERTRALINE HCL 100 MG TABLET PO SCH (09:00)
[2018-12-28] MEDS ORDERED: ASPIRIN 325 MG ECTAB PO SCH (09:00)
[2018-12-28] MEDS ORDERED: MULTIVITAMIN TAB PO SCH (09:00)
[2018-12-28] MEDS ORDERED: ACETAMINOPHEN 500 MG TAB PO SCH (09:00)
--- NOTE | 2018-12-28 09:22 | Anesthesiology Progress Note ---
Date of Service December 28, 2018 Assessment & Plan (1) Post-op pain: There is no evidence of acute neurologic injury here. The patient has some RLE post operative pain which is rapidly improving and may be localized to the S1-S2 nerve roots. 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 As there is no evidence for any acute nerve damage, i see no indication for spine imaging at this time, nor for continued hospitalization. If her symptoms significantly worsen or she develops foot drop, other lower extremity weakness, or severe back pain, she should return to the ED for MRI imaging of the lumbar spine and formal neurology evaluation. I also see no reason to start steroids or neuromodulators here such as gabapentin in the face of rapidly improving symptoms. I explained this to the patient and she is comfortable with the plan. She may be discharged by orthopedic surgery when they deem it appropriate from a surgical standpoint. Subjective Patient had multiple attempts at spinal anesthetic yesterday for TKA, unsuccessfully. She did have parasthesia with needle pass at one point. Post operatively, the patient described pain down the back of her non operative leg that was a 7-8/10 last night and has improved to a 2-3/10 today. She has no pain in her operative leg or knee. She denies and numbness or weakness, she has no low back pain, no foot drop, and she has an indwelling ramírez catheter as she has chronic urinary retention. She is comfortably sitting in a chair eating breakfast this morning, and has walked to the bathroom this morning without difficulty. Her pain is difficult to discriminate, but appears to be primarily in S1 and S2 dermatomes, and only in the non operative leg. Physical Exam Vital Signs Last Vital Signs Temp 37.2 C 12/28/18 08:16 Pulse 82 12/28/18 08:16 Resp 18 12/28/18 08:16 BP 130/77 12/28/18 08:16 Pulse Ox 97 12/28/18 08:16 Constitutional WD/WN, vitals as above no acute distress Neurologic normal touch/pain/proprioception No parasthesia in RLE. All motor function in R foot 5/5. 5/5 strength flexion and extension at the R knee. 5/5 strength flexion and extension at the R hip. Results & Data Medications Administered Acetaminophen (Tylenol) 1,000 mg PO Q8H [facility] Stop: 01/27/19 08:59 Last Admin: 12/28/18 08:51 Dose: 1,000 mg Documented by: [id number] Alprazolam (Xanax) 0.5 mg PO Q12H PRN PRN Reason: Anxiety/Insomnia Stop: 01/26/19 22:42 Last Admin: 12/27/18 23:44 Dose: 0.5 mg Documented by: [id number] Aspirin (Ecotrin) 325 mg PO BID [facility] Stop: 01/27/19 08:59 Last Admin: 12/28/18 08:50 Dose: 325 mg Documented by: [id number] Docusate Sodium (Colace) 100 mg PO BID [facility] Stop: 01/26/19 20:59 Last Admin: 12/28/18 08:50 Dose: 100 mg Documented by: [id number] Admin: 12/27/18 21:11 Dose: 100 mg Documented by: [id number] Ketorolac Tromethamine (Toradol) 15 mg IV Q6H [facility]; Protocol Stop: 12/28/18 10:01 Last Admin: 12/28/18 08:51 Dose: 15 mg Documented by: [id number] Admin: 12/28/18 03:40 Dose: 15 mg Documented by: [id number] Admin: 12/27/18 21:11 Dose: 15 mg Documented by: [id number] Admin: 12/27/18 16:50 Dose: 15 mg Documented by: [id number] Multivitamins (Multivitamin Tab) 1 tab PO QAM [facility] Stop: 01/27/19 08:59 Last Admin: 12/28/18 08:51 Dose: 1 tab Documented by: [id number] Sennosides (Senokot) 17.2 mg PO HS [facility] Stop: 01/26/19 20:59 Last Admin: 12/27/18 21:11 Dose: 17.2 mg Documented by: [id number] Sertraline HCl (Zoloft) 200 mg PO QAM [facility] Stop: 01/27/19 08:59 Last Admin: 12/28/18 08:50 Dose: 200 mg Documented by: [id number] Tramadol HCl (Ultram) 50 mg PO Q4H PRN PRN Reason: Pain Stop: 01/26/19 20:03 Last Admin: 12/28/18 01:28 Dose: 50 mg Documented by: [id number]
--- NOTE | 2018-12-28 10:12 | Orthopedic Progress Note ---
Date of Service December 28, 2018 Assessment & Plan (1) Left knee DJD: s/p Left TKA POD#1 -Ancef x 24 -DVT ppx: ASA BID, SCDs, TEDS -WBAT LLE -PT/OT -PO XR - Well aligned well fixed orthopedic prothesis without fracture/dislocation -am labs - hgb 11.8 -DC planning - home with HH Subjective Post Operative Progress Note Patient seen sitting up in bed, comfortable, denies complaints, pain well controlled, no acute issues. Physical Exam Vital Signs (Past 24 Hours): Last Vital Signs Temp 37.2 C 12/28/18 08:16 Pulse 82 12/28/18 08:16 Resp 18 12/28/18 08:16 BP 130/77 12/28/18 08:16 Pulse Ox 97 12/28/18 08:16 Physical Exam: LLE NVSI +EHL/FHL/TA/GS SILT grossly, +2 DP pulse, compartments soft NT, dressing cdi. Constitutional: WD/WN, vitals as above
[2018-12-28] MEDS ORDERED: PANTOprazole 40 MG TAB PO SCH (10:30)
[2018-12-28] MEDS ORDERED: OXYCODONE HCL IR 5 MG TAB (IMMEDIATE RELEASE) PO PRN (14:33)
[2018-12-28] MEDS ORDERED: CeleBREX 200 MG CAP PO SCH (21:00)
--- NOTE | 2018-12-28 21:30 | Discharge Summary ---
Date of Service December 28, 2018 Admission HPI Per Admitting Provider The patient is a 73 year old female who presents with complaints of severe left knee pain and DJD. The patient has failed outpatient conservative treatments to this point which included NSAIDs, corticosteroid and MARTI injections, HEP and physical therapy. The patient's pain and limited function have progressed to the point where they severely hinder their activities of daily living and they no longer tolerate exercise programs. They are requesting to proceed with total knee replacement surgery. Principal Diagnosis Left total knee replacement Discharge Exam LLE NVSI +EHL/FHL/TA/GS SILT grossly, +2 DP pulse, compartments soft NT, dressing cdi. Constitutional WD/WN, vitals as above Eyes PERRL, conjunctivae normal, anicteric sclerae ENMT external ear and nose normal, oropharynx normal Neck trachea midline, no thyromegaly Respiratory normal respiratory effort, lungs clear to auscultation Cardiovascular RRR, no murmur, no edema Gastrointestinal (Abdomen) normal bowel sounds, soft, nontender, no hepatosplenomegaly Musculoskeletal no cyanosis or clubbing, extremities motor strength 5/5 Skin no rashes, warm and dry Neurologic patellar DTR's 2+ bilat, sensation intact Psychiatric A+Ox3, euthymic affect Lymphatic no cervical or axillary lymphadenopathy Discharge Data Allergies Allergy/AdvReac Type Severity Reaction Status Date / Time hydrocodone Allergy Intermediate HIVES, ITCH Verified 12/27/18 08:16 oxycodone Allergy Intermediate HIVES, ITCH Verified 12/27/18 08:16 codeine Allergy Unknown NAUSEA, Verified 12/27/18 08:16 VOMITING, ITCHING morphine Allergy Unknown SEVERE Verified 12/27/18 08:16 CONSTIPATION nitrofurantoin AdvReac Unknown Nausea/vomi Verified 12/27/18 08:16 ting. Consultations 12/27/18 15:12 Consult Case Management - Discharge Planning Routine Procedures Performed Operation Date: 11/29/18 09:25 <No data on this case meets the specified criteria> Operation Date: 12/27/18 10:15 Actual Procedures p Left Total Knee Arthroplasty(Left) - Farhan Blackmon DO Ordered Studies 11/29/18 05:00 US - OR guided needle placemen Routine 12/27/18 05:00 US - OR guided needle placemen Routine Hospital Course (1) Left knee DJD: The patient is a 73 -year-old female who presents with long standing history of severe left knee DJD and failed outpatient conservative treatments including NSAIDs, bracing, injections and home walking/exercise program. The patient's symptoms have progressed to the point where it has been difficult to perform even normal activities of daily living. I indicated the patient for a left total knee arthroplasty, the risks, benefits and complications of the procedure include but not limited to infection, bleeding, damage to bone, nerves, vessels, surrounding soft tissue, may develop blood clots, loss of function, leg length discrepancy, dislocation, failure of the components, loosening of the components, the need for additional surgery and . The patient wished to proceed with surgery at this time and informed consent was obtained. Hospital Course: On 12/27/18 the patient was taken to the operating room, adequate anesthesia administered and underwent a left total knee arthroplasty. The patient queenie ated the procedure well and was taken to the PACU in stable condition. Post- operatively the patient was started on a DVT ppx medication and given appropriate IV antibiotics. Consults were placed to physical therapy, occupational therapy and case management. On POD#1, the patient did well overnight and their pain was well controlled. Labs were drawn and the Hgb was 11.8. The patient progressed well with PT. Dressings were changed at this time and the incision was clean, dry and intact. The patients hospital stay was relatively uneventful and they were deemed stable by the orthopedic team and consultants to be discharged home with on 12/28/18. Discharge Instructions: Upon discharge the patient may weight bear as tolerates through their operative extremity. They were instructed to keep the incision clean and dry at all times. The patient may shower but should not submerge the incision, avoid bathing, pools and hot tubes. The patient was given a script for pain medication and should take as instructed. The patient was given a script for DVT ppx ASA 325mg BID and should take as directed. The patient was instructed to not drive or travel for long distances until cleared to do so. If the patient develops any symptoms of fevers, chills, nausea, vomiting, increased redness, swelling, pain or drainage from the surgical site, they should notify the office and/or proceed to the nearest emergency room. The patient should follow up in 10-14 days after surgery for their routine post-operative follow-up appointment and should call the office to confirm the date and time. s/p Left TKA POD#1 -Ancef x 24 -DVT ppx: ASA BID, SCDs, TEDS -WBAT LLE -PT/OT -PO XR - Well aligned well fixed orthopedic prothesis without fracture/dislocation -am labs - hgb 11.8 -DC planning - home with HH Total Time Total Time Spent Total Time Spent (In Minutes): >60 minutes Discharge Plan Discharge Items Patient Disposition: Home - Home Health Services Reason For Visit: Left Knee Osteoarthritis Discharge Diagnosis: Left total knee replacement Condition: Good Discharge Goals: Decrease discomfort, Improve disease control, Improve function and Increase independence Activity: Per 'Additional Instructions' section Lifting: Wait until after follow-up appointment Bathing Comment: No pools, hot tubs or bathing Sexual Activity: Wait until after follow-up appointment Exercise/Sports: Wait until after follow-up appointment Driving/Machine Use Comment: not until approved by your Doctor Weightbearing: Left weightbearing Non-emergency contact: Primary Care Provider and Surgeon Call non-emergency contact if: you have any medication questions, your symptoms worsen, your pain is not controlled, your pain is worsening, your pain is u nusual for you, your pain is concerning for you, you have a fever, your temperature is above 101, your wound has increased redness, your wound has increased drainage and your wound pain has increased Follow-up/Referrals: Catalino Espinosa [Primary Care Provider] - Diet: Regular Addtl Provider Instructions: ACTIVITY RECOMMENDATIONS: SELF CARE INSTRUCTIONS AFTER TOTAL KNEE REPLACEMENT A. You may need to continue a physical therapy program after discharge from the hospital. There are several options available to you. Your doctor will assist you in selecting the best one for you. 1. An out-patient facility 2 to 3 times a week for therapy or home therapy. 2. Continue working on all exercises taught to you in the hospital. Your goals should be to increase bending of your knee to 90 degrees and beyond and to fully straighten your knee. B. You may progress at your own pace from walking with a walker or crutches to a cane; then to no assistive devices. C. Make walking a part of your daily routine. Be up as much as comfortable with rest periods throughout the day. Rest with leg elevation is very important. Use the ice wrap frequently for the first 3-4 weeks. D. There are no restrictions on activities. You may ride in a car, shop, participate in psychotherapist and all social activities. E. Wear the long elastic stockings (JANET hose) 20 hours a day for 2 weeks after surgery. They can be removed several times a day for laundering and for a bath. F. You may shower, no tub baths until cleared by your doctor. SPECIAL CARE INSTRUCTIONS: VERY IMPORTANT TO READ AND REVIEW A. There are a few signs you need to watch for after you are home. Call [facility] [place] [facility] if you notice any of the followin. Increased severe knee pain. Some pain is expected especially when you exercise. 2. Increased swelling in your leg or knee; pain or swelling of the calf muscle in either lower leg. 3. Any fluid drainage from the incision. 4. Shortness of breath or chest pain. B. Please call [facility] at if you have any concerns or questions about your operation or recovery. The doctor or his nurse will return your call promptly. C. You must take antibiotics before dental work, bladder, bowel or other surgery. Your doctor will provide you with a permanent care to carry describing this precaution. IMPORTANT: * REMEMBER TO TAKE ASPIRIN, 325 MG, TWICE DAILY FOR 4 WEEKS UNLESS OTHERWISE DIRECTED. THIS IS YOUR BLOOD THINNER. * HIGH RISK PATIENTS MAY BE PRESCRIBED A STRONGER BLOOD THINNER. THIS WILL BE PROVIDED AT DISCHARGE. * CALL IF INCREASED PAIN, REDNESS, DRAINAGE OR FEVER GREATER THAT 101. * WEAR JANET HOSE 20 HOURS PER DAY FOR 2 WEEKS. * DERMABOND Prineo- This is a mesh tape dressing that is covered with glue. It should remain in place until the incision is properly healed, usually 10-14 days. This dressing is designed to naturally slough off. You may trim the excess mesh tape as it peels off. Incision may be briefly wet in a shower. Dry immediately by blotting with a clean, dry towel. Do not bath or swim until instructed by your doctor. Do not scratch, rub, or pick at the dressing. Do not apply any topical ointments or lotions until dressing is completely removed and/or instructed by your doctor. There may be a small piece of suture material at one end of your incision. Do not pull or trim this. If it is bothersome or catching on clothing, you may cover it with a band-aid. FOLLOW UP VISIT: If appointment is not already scheduled: Please call [facility] [place] to make a follow-up appointment for 2 weeks after your surgery at . Prescriptions: New acetaminophen [Pain Reliever] 500 mg Tablet 1,000 mg PO Q8H 14 Days Qty: 84 RF: 0 aspirin 325 mg Tablet,Delayed Release (Dr/Ec) 325 mg PO BID 30 Days Qty: 60 RF: 0 sennosides [Senokot] 8.6 mg Tablet 17.2 mg PO HS Qty: 30 RF: 0 sulfamethoxazole-trimethoprim [Bactrim DS] 800-160 mg tablet 1 tab PO Q12H Qty: 14 RF: 1 oxycodone 5 mg Tablet 5 mg PO Q6H MDD 6 tabs PRN (Reason: pain) Qty: 30 RF: 0 Continued calcium carbonate [Calcium 500] 500 mg calcium (1,250 mg) Tablet 500 mg PO QAM RF: 0 Prilosec OTC 20 mg Tablet,Delayed Release (Dr/Ec) 20 mg PO QAM RF: 0 sertraline 100 mg Tablet 200 mg PO QAM RF: 0 multivitamin Capsule 1 cap PO QAM RF: 0 cranberry 500 mg Capsule 500 mg PO TID RF: 0 alprazolam [Xanax] 0.5 mg Tablet 0.5 mg PO BID PRN (Reason: Anxiety) RF: 0 Stand-Alone Forms: [employer] [facility] 3LM, Opioid Pain Management Discharge Orders: Discharge Order (Routine); Ordered 12/28/18 Ordered By: Rios Liriano Admission Data Admit Date/Time: 12/27/18 15:01 Attending Provider: Farhan Blackmon Admit Provider: Farhan Blackmon Primary Care Provider: Catalino Espinosa Service: Surgical Services Other Interventions: Discharge Summary Assessment (RN) Last Done: 12/28/18 14:04 DC Date/Time DO NOT enter until pt leaves facility: 12/28/18 14:56
--- NOTE | 2019-01-05 09:13 | Anesthesiology Progress Note ---
Date of Service January 05, 2019 Anesthesia Post Procedure Pain Intensity Right Leg: Pain Intensity: 3 Left Leg: Pain Intensity: 0 Notes Notes: Called patient to follow up on her right sided leg pain after attempted spinal for left knee replacement surgery. Patient states that the pain continues to improve and now is just a "little in her calf and her heel." During our conversation she stated that she is not worried about it, but I did encourage her to call the hospital and ask to speak with the anesthesia team if she does develop any questions or concerns. Otherwise patient states that her recover is going ok. She states the left knee hurts, but that she has been participating in physical therapy. Pt did not have any questions or concerns about the anesthesia at this time.
== END 2018-12-28 14:56 | disposition home health service (06) | DRG 470 ==
LOC: ASU 07:43 → 3E 15:01

== ENCOUNTER 2019-07-25 05:03 | Inpatient (IN) ==
--- NOTE | 2019-06-22 16:19 | PAT Medication Instructions ---
Medication Instructions Date of Service June 22, 2019 Home Medications Medication Instructions Recorded sennosides [Senokot] 17.2 mg PO HS #30 tab 12/28/18 nitrofurantoin macrocrystal 100 mg 100 mg PO BID #60 cap 05/23/19 capsule Prilosec OTC 20 mg PO QAM calcium carbonate [Calcium 500] 500 mg PO QAM cranberry 500 mg PO TID multivitamin 1 cap PO QAM sertraline 200 mg PO QAM alprazolam [Xanax] 0.5 mg PO BID PRN sennosides [Senokot] 17.2 mg PO HS nitrofurantoin macrocrystal 100 mg capsule 100 mg PO BID nitrofurantoin monohyd/m-cryst [Macrobid] 100 mg PO HS Continue as directed nitrofurantoin macrocrystal 100 mg capsule 100 mg PO BID nitrofurantoin monohyd/m-cryst [Macrobid] 100 mg PO HS STOP taking 2 weeks before surgery cranberry 500 mg PO TID DO NOT take the morning of surgery calcium carbonate [Calcium 500] 500 mg PO QAM multivitamin 1 cap PO QAM Take morning of surgery With a small sip of water, OTHERWISE NOTHING TO EAT OR DRINK AFTER MIDNIGHT: Prilosec OTC 20 mg PO QAM sertraline 200 mg PO QAM alprazolam [Xanax] 0.5 mg PO BID PRN (if needed) Take evening before surgery alprazolam [Xanax] 0.5 mg PO BID PRN (if needed) sennosides [Senokot] 17.2 mg PO HS Other Notes If you have any questions please call us at [phone] or [phone] or [phone] or [phone]
--- NOTE | 2019-06-26 10:48 | Anesthesiology Consultation ---
Date of Service June 26, 2019 Assessment & Plan (1) Encounter for pre-operative examination: - Awaiting review preop testing (labs). - Awaiting surgeon-ordered PCP clearance (Dr. Harlan Tubbs). - Patient requests GA: s/p Left TKA: 12/27/18: Multiple attempts and spinal without success-- 1 attempt produced right sided paresthesia. Decision to switch to general. Grade view 1, MAC#3, ETT 7.0 at [facility] Chart Review Chart Review: Patient seen in Pre Admission Testing Teaching & Discussion Pre-Anesthesia Teaching/Discussion Notes: Instructed NPO after midnight before surgery,except medications with 15 cc of water. Medication instructions provided according to the PAT guidelines. History Surgery Operation Date: 07/25/19 13:45 Proposed Procedures p Right Total Knee Arthroplasty - Farhan Blackmon DO Height/Weight Height: 5 ft 6 in Weight: 76 kg Allergies Allergy/AdvReac Type Severity Reaction Status Date / Time hydrocodone Allergy Intermediate HIVES, ITCH Verified 06/16/19 11:10 oxycodone Allergy Intermediate HIVES, ITCH Verified 06/16/19 11:10 codeine Allergy Unknown NAUSEA, Verified 06/16/19 11:10 VOMITING, ITCHING morphine AdvReac Unknown SEVERE Verified 06/26/19 10:47 CONSTIPATION nitrofurantoin AdvReac Unknown N/V Verified 06/26/19 10:47 Medications Home Medications Medication Instructions Recorded Confirmed Last Taken Prilosec OTC 20 mg PO QAM 11/04/18 06/16/19 12/27/18 07:00 calcium carbonate [Calcium 500] 500 mg PO QAM 11/04/18 06/16/19 12/26/18 07:00 cranberry 500 mg PO TID 11/04/18 06/16/19 Unknown multivitamin 1 cap PO QAM 11/04/18 06/16/19 12/26/18 07:00 sertraline 200 mg PO QAM 11/04/18 06/16/19 12/27/18 07:00 alprazolam [Xanax] 0.5 mg PO BID PRN 11/15/18 06/16/19 12/27/18 07:00 sennosides [Senokot] 17.2 mg PO HS #30 tab 12/28/18 06/16/19 Unknown nitrofurantoin macrocrystal 100 mg 100 mg PO BID #60 cap 05/23/19 05/23/19 Unknown capsule nitrofurantoin monohyd/m-cryst 100 mg PO HS 06/16/19 06/16/19 Unknown [Macrobid] Past Medical History Medical History Anxiety Depression Frequent UTI Macrobid preventative GERD (gastroesophageal reflux disease) controlled Gastroparesis Hiatal hernia History of neurogenic bladder urology (Dr. Jurado) monitoring- able to urinate small amounts on own but typically self-caths TID+ Osteoarthritis Refusal of blood transfusions as patient is Amish Transient ischemic attack (TIA) x3; Most recent ~2015 Exercise / Class Metabolic Activity II 4-5 Yardwork/Stairs/Walk up hill Past Family History Family History Family/Other Family history of diabetes mellitus GRANDSON Past Surgical History Surgical History History of bilateral tubal ligation History of cholecystectomy History of colonoscopy History of esophagogastroduodenoscopy (EGD) History of kidney surgery S/P surgery for ureter obstruction/"kink" () History of total knee replacement Left TKA: 12/27/18: Multiple attempts and spinal without success-- 1 attempt produced right sided paresthesia. Decision to switch to general. Grade view 1, MAC#3, ETT 7.0 at [facility] Status post wrist surgery right Past Anesthesia History No Family Hx of Anesthesia Complications and Other Left TKA: 12/27/18: Multiple attempts and spinal without success-- 1 attempt produced right sided paresthesia. Decision to switch to general. Grade view 1, MAC#3, ETT 7.0 at [facility] History of PONV No Hx of PONV and No Hx of Motion Sickness Social History Smoking Status: Never smoker Do You Dip or Chew Tobacco: No Hx Alcohol Use: Yes Alcohol type: wine alcohol intake frequency: holidays/special occasions only Hx Substance Use: No substance use type: does not use Review of Systems Patient denies chest pain, shortness of breath, dyspnea on exertion, cough, wheezing, palpitations. Physical Exam Vital Signs VITALS BP 147/85 P 77 TEMP 98.5 SP02 95%RA RESP 18 PHYSICAL Full neck and c-spine range of motion. Full TMJ range of motion. TMD 4 finger breaths Mallampati Score 3 Dentition: full upper dentures, partial on lower Lungs: clear throughout to auscultation Cardiac: regular rate and rhythm, no murmurs noted Spine: normal Carotid arteries: negative bruit Extremities: no edema Testing Electrocardiogram Date: 11/15/18 + NSR @ (84) and + no change from (06/28/14) Chest X-Ray Date: 11/15/18 There is a nonspecific calcification visualized within the upper anterior abdomen on the lateral projection. There is no corresponding finding on the PA film, and therefore this is potentially related to an overlying artifact. No active disease in the chest.
[2019-06-26 13:03] LABS: Basophils # (auto) 0.02 K/uL (0-0.2); Basophils % (auto) 0.3 %; Eosinophils # (auto) 0.11 K/uL (0-0.5); Eosinophils % (auto) 1.4 %; Hematocrit (blood only) 37.9 % (37-47); Immature Granulocytes # (auto) 0.03 K/uL (0.00-0.02); Immature Granulocytes % (auto) 0.4 %; Lymphocytes # (auto) 2.72 K/uL (1.2-3.4); Lymphocytes % (auto) 34.7 %; Mean Corpuscular Hemoglobin 31.5 pg (25-34); Mean Corpuscular Hgb Conc 34.3 g/dL (32-36); Mean Corpuscular Volume 91.8 fL (80-100); Mean Platelet Volume 9.4 fL (7.4-10.4); Monocytes # (auto) 0.83 K/uL (0.11-0.59); Monocytes % (auto) 10.6 %; Neutrophils # (auto) 4.12 K/uL (1.4-6.5); Neutrophils % (auto) 52.6 %; Platelet Count 231 K/uL (130-400); RDW Coefficient of Variation 14.8 % (11.5-14.5); RDW Standard Deviation 50.6 fL (36.4-46.3); Red Blood Count 4.13 M/uL (4.2-5.4); White Blood Count 7.83 K/uL (4.8-10.8)
[2019-06-26 13:14] LABS: Appearance Urine Clear (Clear); Bacteria Urine Automated 3+ (Negative); Bilirubin Urine Negative (Negative); Blood Urine Negative (Negative); Color Urine Yellow; Epithelial Cell Urine Auto 20-30 /lpf (0-5); Glucose Urine UA Negative (Negative); Ketones Urine Negative (Negative); Leukocyte Esterase Urine 1+ (Negative); Nitrite Urine Positive (Negative); Protein Urine Negative (Negative); RBC Urine Automated 0-4 /hpf (0-4); Specific Gravity Urine 1.014 (1.000-1.030); Urobilinogen Urine Negative (Negative); pH Urine 6.5 (4.5-7.5)
[2019-06-26 13:19] LABS: INR 1.1 (0.9-1.1); Partial Thromboplastin Time 27.1 Seconds (21.0-31.0); Prothrombin Time 10.8 Seconds (9.0-12.0)
[2019-06-26 13:26] LABS: Estimated Average Glucose 117 mg/dl; Hemoglobin A1C 5.7 % (4.5-5.6)
[2019-06-26 13:57] LABS: Albumin Level 3.9 gm/dl (3.4-5.0); BUN Creatinine Ratio 19.7 (10-20); Calcium 9.6 mg/dl (8.5-10.1); Creatinine Clr Calc Pharmacy 66.8 ml/min; Est GFR (African American) 88.2; Est GFR (Non-African American) 76.1
--- NOTE | 2019-07-24 21:09 | History & Physical Report ---
Date of Service July 24, 2019 Assessment & Plan (1) Degenerative joint disease of knee, right: I have indicated the patient for right total knee replacement. The risks, benefits and complications of surgery were explained to the patient which include but not limited to infection, acute blood loss, DVT/PE, injury to nerves, vessels, bone, soft tissue, arthrofibrosis, chronic pain, failure of the prosthesis, knee dislocation, leg length discrepancy, need for additional surgery, cardiac and pulmonary events and . The patient wished to proceed with surgery and informed consent was obtained at this time. We will plan for ASA BID post-operatively for DVT prophylaxis. Upon discharge the patient will be discharged home with home health services. Appropriate clearances by PCP were obtained. Patient has hx of self cath, chronic bacteruria, treated with PO macrobid, currently asymptomatic for UTI, Jahovah's witness, consented for refusal of blood products, understands risks. History of Present Illness Chief Complaint: Right knee pain/djd Primary Care Provider: Harlan Tubbs MD The patient is a 74 year old female who presents with complaints of severe right knee pain and DJD. The patient has failed outpatient conservative treatments to this point which included NSAIDs, corticosteroid injections, PT/home exercise/walking program. The patient's pain and limited function have progressed to the point where they severely hinder their activities of daily living and they no longer tolerate exercise programs. They are requesting to proceed with total knee replacement surgery. Allergies Allergy/AdvReac Type Severity Reaction Status Date / Time hydrocodone Allergy Intermediate HIVES, ITCH Verified 07/25/19 06:02 oxycodone Allergy Intermediate HIVES, ITCH Verified 07/25/19 06:02 codeine Allergy Unknown NAUSEA, Verified 07/25/19 06:02 VOMITING, ITCHING morphine AdvReac Unknown SEVERE Verified 07/25/19 06:02 CONSTIPATION nitrofurantoin AdvReac Unknown N/V Verified 07/25/19 06:02 Home Medications Home Medications Medication Instructions Recorded Confirmed Type Prilosec OTC 20 mg PO QAM 11/04/18 07/25/19 History calcium carbonate [Calcium 500] 500 mg PO QAM 11/04/18 07/25/19 History cranberry 500 mg PO TID 11/04/18 07/25/19 History multivitamin 1 cap PO QAM 11/04/18 07/25/19 History sertraline 200 mg PO QAM 11/04/18 07/25/19 History alprazolam [Xanax] 0.5 mg PO BID PRN 11/15/18 07/25/19 History sennosides [Senokot] 17.2 mg PO HS #30 tab 12/28/18 07/25/19 Rx nitrofurantoin macrocrystal 100 mg 100 mg PO BID #60 cap 05/23/19 07/25/19 Rx capsule nitrofurantoin monohyd/m-cryst 100 mg PO HS 06/16/19 07/25/19 History [Macrobid] Past Med/Surg History Medical History Anxiety Depression Frequent UTI Macrobid preventative GERD (gastroesophageal reflux disease) controlled Gastroparesis Hiatal hernia History of neurogenic bladder urology (Dr. Jurado) monitoring- able to urinate small amounts on own but typically self-caths TID+ Osteoarthritis Refusal of blood transfusions as patient is J[place] Transient ischemic attack (TIA) x3; Most recent ~2015 Surgical History History of bilateral tubal ligation History of cholecystectomy History of colonoscopy History of esophagogastroduodenoscopy (EGD) History of kidney surgery S/P surgery for ureter obstruction/"kink" () History of total knee replacement Left TKA: 12/27/18: Multiple attempts and spinal without success-- 1 attempt produced right sided paresthesia. Decision to switch to general. 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 Beliefs That Will Affect Care: Protestant Protestant Beliefs: [employer]- NO BLOOD PRODUCTS marital status: Current Living Situation: Spouse Other Information That Helps Us Care for You: No Feels Safe at Home: Yes Safety Concerns: Feels Safe At This Time Smoking Status: Never smoker Do You Dip or Chew Tobacco: No ; Second Hand Exposure: No ; Hx Alcohol Use: Yes Alcohol type: wine Hx Substance Use: No Review of Systems Review of Systems: All systems reviewed & are unremarkable except as noted in HPI & below Constitutional: as per Subjective / HPI Physical Exam Physical Exam: RLE NVSI +EHL/FHL/TA/GS SILT grossly, +2 DP pulse, compartments soft NT, rom 0-110 degrees of flexion, +crepitus. Constitutional: WD/WN, vitals as above Eyes: PERRL, conjunctivae normal, anicteric sclerae ENMT: external ear and nose normal, oropharynx normal Neck: trachea midline, no thyromegaly Respiratory: normal respiratory effort, lungs clear to auscultation Cardiovascular: RRR, no murmur, no edema Gastrointestinal (Abdomen): normal bowel sounds, soft, nontender, no hepatosplenomegaly Musculoskeletal: no cyanosis or clubbing, extremities motor strength 5/5 Skin: no rashes, warm and dry Neurologic: patellar DTR's 2+ bilat, sensation intact Psychiatric: A+Ox3, euthymic affect Lymphatic: no cervical or axillary lymphadenopathy Results & Data Diagnostic Findings Multiple views of the knee demonstrates severe tricompartmental DJD with complete loss of the medial joint space. +osteophytes, +sclerosis, +subchondral cysts.
[2019-07-25] MEDS ORDERED: ROPIVACAINE 0.5% HCL/PF 150 MG, BUPIVACAINE 0.5% MPF 30 ML, EPINEPHrine 30MG/30ML (OR U... INSTIL SCH (06:00)
[2019-07-25] MEDS ORDERED: LR 15ML/HR IV SCH (06:00)
[2019-07-25] MEDS ORDERED: METOCLOPRAMIDE HCL 10 MG TABLET PO SCH (06:00)
[2019-07-25] MEDS ORDERED: dexAMETHasone 4 MG TAB PO SCH (06:00)
[2019-07-25] MEDS ORDERED: FAMOTIDINE 20 MG TAB PO SCH (06:00)
[2019-07-25] MEDS ORDERED: CEFAZOLIN 1000MG 1,000 MG/7.5 ML SYR IV SCH (06:00)
[2019-07-25] MEDS ORDERED: CeleBREX 200 MG CAP PO SCH (06:00)
[2019-07-25] MEDS ORDERED: GABAPENTIN 300 MG CAP PO SCH (06:00)
[2019-07-25] MEDS ORDERED: ACETAMINOPHEN 500 MG TAB PO SCH (06:00)
[2019-07-25] MEDS ORDERED: TRANEXAMIC ACID 1,000 MG **IV Pre-op IV SCH (06:00)
[2019-07-25] MEDS ORDERED: BUPIVACAINE 0.25% 30 ML VIAL ONE (06:20)
[2019-07-25] MEDS ORDERED: BUPIVACAINE 0.5 % 5 MG/1 ML PF 10ML VIAL ONE (06:20)
[2019-07-25] MEDS ORDERED: TRANEXAMIC ACID 1,000 MG **IV Intra-op IV SCH (06:30)
[2019-07-25] MEDS ORDERED: KETAMINE HCL INJ 50 MG/ML 10 ML VIAL ONE (06:32)
[2019-07-25] MEDS ORDERED: MIDAZOLAM HCL 1 MG/ML 2ML VIAL ONE (06:32)
[2019-07-25] MEDS ORDERED: DEXAMETHASONE SOD INJ 4 MG/ML VIAL ONE (06:35)
[2019-07-25] MEDS ORDERED: LIDOCAINE HCL 2% 2 ML VIAL/AMP(20MG/ML) INFIL ONE (06:35)
[2019-07-25] MEDS ORDERED: ONDANSETRON INJ 2 MG/ML 2 ML VIAL ONE (06:35)
[2019-07-25] MEDS ORDERED: GLYCOPYRROLATE 0.2 MG/ML VIAL ONE (06:35)
[2019-07-25] MEDS ORDERED: PROPOFOL IV EMULSION 10 MG/ML 20 ML VIAL IV ONE (06:35)
[2019-07-25] MEDS ORDERED: ORTHO JOINT ANESTHETIC ONE (06:51)
[2019-07-25] MEDS ORDERED: BACITRACIN INJ 50,000 UNIT VIAL ONE (06:52)
--- NOTE | 2019-07-25 07:01 | History & Physical Bridge Note ---
Date of Service July 25, 2019 History & Physical Bridge Note I have examined the patient, reviewed the History & Physical and in the interval since the performance of the History & Physical I have noted the following changes of clinical significance: no changes noted
[2019-07-25] MEDS ORDERED: fentaNYL citrate 100 MCG/2 ML VIAL ONE ×2 (07:33→09:24)
[2019-07-25] MEDS ORDERED: fentaNYL citrate 100 MCG/2 ML VIAL IV PRN (08:25)
[2019-07-25] MEDS ORDERED: ePHEDrine sulfate 50 MG/ML AMP IV PRN (08:25)
[2019-07-25] MEDS ORDERED: ATROPINE SULFATE 0.1 MG/ML 10ML SYR IV PRN (08:25)
[2019-07-25] MEDS ORDERED: HYDROmorphone INJ 1 MG/ML SYRINGE IV PRN (08:25)
[2019-07-25] MEDS ORDERED: ONDANSETRON INJ 2 MG/ML 2 ML VIAL IV PRN ×2 (08:25→10:36)
--- NOTE | 2019-07-25 09:00 | Post Operative Brief Note ---
Immediate Post Op Note v1 Date of Surgery July 25, 2019 Pre & Post Diagnosis Operation Date: 07/25/19 07:15 Pre-Op Diagnosis: Unilateral Primary Osteoarthritis, Right Knee Post-Op Diagnosis: Unilateral Primary Osteoarthritis, Right Knee I identified the patient and participated in the time-out.: Yes Procedure Operation Date: 07/25/19 07:15 Actual Procedures p Right Total Knee Arthroplasty(Right) - Farhan Blackmon DO Surgeon Farhan Blackmon DO Tank Operator Thomas Durham Estimated Blood Loss 85 Findings Consistent with Post-Op Diagnosis Fluids 1700 cc LR Specimens proximal tibia, distal femur Anesthesia Type General Regional Complications none Disposition Disposition: Recovery Room Overlapping Procedure I was present for: the critical portions of procedure. I was immediately available: during the entire case. Back up surgeon: was not required during procedure.
--- NOTE | 2019-07-25 09:20 | Operative Report ---
Post Operative Report Pre & Post Diagnosis Operation Date: 07/25/19 07:15 Pre-Op Diagnosis: Unilateral Primary Osteoarthritis, Right Knee Post-Op Diagnosis: Unilateral Primary Osteoarthritis, Right Knee I identified the patient and participated in the time-out.: Yes Procedure Operation Date: 07/25/19 07:15 Actual Procedures p Right Total Knee Arthroplasty(Right) - Farhan Blackmon DO Surgeon Farhan Blackmon DO Process Chemist Thomas Durham Estimated Blood Loss 85 Findings Consistent with Post-Op Diagnosis Fluids 1700 cc LR Specimens Femoral head Anesthesia Type General Regional Complications none Disposition Disposition: Recovery Room Indications The patient is a 74-year-old female presents with long history of severe right knee tricompartmental DJD and failed outpatient conservative treatments including NSAIDs, bracing, injections and home walking/exercise program. The patient's symptoms have progressed to the point where it has been difficult to perform normal activities of daily living. I have indicated the patient for a right total knee arthroplasty, the risks and benefits and complications of the procedure include but are not limited to infection bleeding damage to bone, nerves, vessels, surrounding soft tissue, blood clots, loss of function, leg length discrepancy, dislocation, failure of the components, need for additional surgery and . The patient wished to proceed with surgery at this time and informed consent was obtained. Appropriate clearances were obtained. Description of Procedure COMPONENTS USED: Geoff persona knee system: Femur size 7, Tibia size E tibial articulating surface 10 PS, Patella 35 mm Following induction of general with regional anesthesia, a tourniquet was applied to the proximal aspect of the thigh and the patient's right leg was prepped and draped in the usual sterile manner. A timeout was performed, patient identified and site joão confirmed. Appropriate pre-operative IV antibiotics were given. The limb was exsanguinated with an Esmarch bandage and tourniquet was inflated to 300 mmHg. A longitudinal midline incision was made over the anterior knee. Subcutaneous tissue was sharply dissected down to fascia. Electrocautery was used for hemostasis. Next a parapatellar arthrotomy was performed. Patella was everted and the knee was flexed. A Martinez retractor was used to expose the synovium above on the anterior aspect of the femur and removed down to bone. Next, the anterior fat pad was removed to aid in visualization. The medial face of the tibia was cleared of soft tissue first with a Bovie and a holland elevator. This tissue was retracted posteriorly using a blunt Hohmann. Next, the extra-medullary tibial cutting guide was placed to the anterior aspect of the tibia. The tibia resection level was set taking 2mm from the defective tibial condyle. Resection depth was once again confirmed with miranda wing. The medial and lateral collateral ligament was protected with two Hohmann retractors. The tibia guide was removed and proximal tibial bone fragment removed utilizing straight osteotome, electrocautery and Anusha. Next, the distal femur intramedullary canal was accessed utilizing the step drill. The intramedullary distal femur cutting guide was placed into the canal and pinned into place. The distal femur was cut on the 5 degree +0 setting. Next the cutting guide was removed and the femur was sized. Care was taken to ensure appropriate shoe worker all rotation and 3 degree holes were drilled. A size 7 4-in-1 cutting block was placed on the distal end of the femur and secured into place with two short headed screws. Two bent Hohmann retractors were placed to protect the medial and lateral collateral ligaments. The oscillating saw was used to cut anterior, posterior, anterior chamfer and posterior chamfer. The four and one cutting block was removed and bone fragments excised. Laminar pm head cook was placed laterally and the ACL and PCL were removed followed by the medial meniscus and posterior medial osteophytes. Aquamantys was utilized for any posterior medial bleeders and Orthomix injected into the posterior medial capsule. A laminar pm head cook was then placed in the medial compartment and the lateral meniscus and posterior osteophytes were removed. Aquamantys was utilized for any posterior lateral bleeders and Orthomix injected into the posterior lateral capsule. Next, drop cheryl and spacer block were placed with the leg in flexion and extension to assess alignment and flexion/extension gaps. Next, the proximal tibia was assessed and two bent Hohmans were placed medial and lateral to aid in visualization. The appropriate tibia size and rotation was selected and a size E tibial plate was pinned into place with appropriate rotation. Preparation of the tibia was completed utilizing the matching tibial drill and broach. I then turned my attention back to the distal femur in a trial femoral component was impacted into place. Appropriate femoral width was assessed and selected. Next the femur PS box cut guide was placed and cut made with the reciprocal saw and the PS box provisional placed. A trial size 10 PS tibia articular tray was placed and varus-valgus balance assessed in 0 degrees of extension and 30, 60 and 90 degrees of flexion. A final tibial articular surface size 10 PS was chosen. Assess was gained to the patella and caliper utilized to measure width. The patella reamer was utilized and remaining bone removed with oscillating saw. A size 35 mm patella button was selected and the patella pegs drilled. Trial patella button was placed and tracking was assessed. The knee was found to be well balanced, well aligned with excellent patella tracking. The trials were removed and final components were obtained and assembled. The knee was irrigated copiously with sterile saline solution mixed with bacitracin. Access to the proximal tibia was once again obtained utilizing to the Hohmans and the proximal tibia and distal femur were dried with lap sponges. The final components were cemented into place and all excess cement was removed. A trial tibial articular surface was placed while cemented hardened. Knee stability was once again assessed and the final component inserted. A Betadine soak was performed. After 3 minutes, the hip was once more irrigated with copious sterile saline solution with bacitracin. The knee was injected with the remaining Orthomix which includes a combination of Ropivicaine 0.5% 150mg, Bupi vicaine 0.5%/Epinephrine 1:200,000 30ml, Toradol 30mg, Dexamethasone 4mg, Ketamine 10mg, Clonidine 100mcg and NSS 30ml solution. The capsulotomy was closed with #1 Vicryl followed by subcutaneous closure with 2-0 Vicryl suture and a 3-0 V-lock suture. Skin closure was performed using Prineo dressing followed by Craig, 4 x 4s and lloyd wrap. Tourniquet was deflated at 100 minutes. The patient tolerated the procedure well and was taken to the PACU in stable condition. Due to the complex nature of the procedure, the entire surgery was performed with the operational assistance of Thomas Durham PA-C. The pharmacy technician assistant, under direct supervision, was involved in the actual performance of all aspects of the surgical procedure including patient positioning, hemostasis, tissue retraction, instrument management and wound closure. I attest to the content of the Intraoperative Record and any orders documented therein. Any exceptions are noted below.
--- NOTE | 2019-07-25 10:10 | Anesthesiology Progress Note ---
Date of Service July 25, 2019 Anesthesia Post Procedure Vital Signs Vital Signs: Temp Pulse Pulse Resp BP Pulse Ox 07/25/19 10:00 36.8 C 96 H 18 144/92 H 95 07/25/19 09:50 98 H 17 136/83 96 07/25/19 09:40 97 H 17 145/87 H 99 07/25/19 09:31 36.4 C L 96 H 20 142/91 H 94 07/25/19 05:42 37 C 88 18 148/94 H 94 Transfer of Care Handoff Completed per policy Notes Mental Status: alert / awake / arousable and participated in evaluation Patient Amnestic to Procedure: Yes Nausea / Vomiting: adequately controlled Pain: adequately controlled Airway Patency, RR, SpO2: stable & adequate BP & HR: stable & adequate Hydration State: stable & adequate Anesthetic Complications: no major complications apparent and Pt Satisfied with anesthetic care Notes: block is functioning well.
--- NOTE | 2019-07-25 10:10 | XRay Report ---
XR knee RT 1 or 2V routine CLINICAL HISTORY: Surgical Post Op COMPARISON: None. DISCUSSION: Anatomic alignment posttotal right knee arthroplasty. Good contact between prosthetic and underlying bone. IMPRESSION: Anatomic alignment posttotal right knee arthroplasty. The above report was generated using voice recognition software. It may contain grammatical, syntax or spelling errors. Electronically signed by: Jignesh Garcia M.D. 07/25/2019 10:08 AM
[2019-07-25] MEDS ORDERED: METOCLOPRAMIDE HCL INJ 5 MG/ML 2 ML VIAL IV PRN (10:36)
[2019-07-25] MEDS ORDERED: ALPRAZolam 0.5 MG TABLET PO PRN (10:36)
[2019-07-25] MEDS ORDERED: HYDROmorphone INJ 0.5 MG/0.5 ML SYR IV PRN (10:36)
[2019-07-25] MEDS ORDERED: NALOXONE HCL 0.4 MG/1 ML VIAL/CARP IV PRN (10:36)
[2019-07-25] MEDS ORDERED: BISACODYL 10 MG SUPP PR PRN (10:36)
[2019-07-25] MEDS ORDERED: MAGNESIUM HYDROXIDE SUSP 30 ML UDC PO PRN (10:36)
[2019-07-25] MEDS: SODIUM CHLORIDE 0.9% 1000ML 1,000 ML IV SCH ×2 (10:57→21:04)
[2019-07-25] MEDS: KETOROLAC TROMETHAMINE 15 MG/ML VIAL IV SCH ×3 (11:02→22:12)
[2019-07-25] MEDS: CEFAZOLIN 2000MG 2,000 MG/15 ML SYR IV SCH ×2 (14:06→22:13)
--- NOTE | 2019-07-25 17:42 | Orthopedic Progress Note ---
Date of Service July 25, 2019 Assessment & Plan (1) Degenerative joint disease of knee, right: Status post right total knee arthroplasty -Ancef x24 -DVT prophylaxis: Teds, SCDs, 81 mg ASA twice daily -Weight-bear as tolerates right lower extremity -PT/OT -Postoperative x-ray demonstrates a well aligned well fixed orthopedic prosthesis without evidence of fracture dislocation. -A.m. lab -DC planning Subjective Post Operative Progress Note Patient seen sitting up in bed, comfortable, denies complaints, pain well controlled, no acute issues. Denies F/C/N/V/SOP/CP Review of Systems Review of Systems: All systems reviewed & are unremarkable except as noted in HPI & below Constitutional: as per Subjective / HPI Physical Exam Physical Exam: RLE NVSI +EHL/FHL/TA/GS SILT grossly, +2 DP pulse, compartments soft NT, dressing cdi. Constitutional: WD/WN, vitals as above Results & Data Vital Signs (Past 12 Hours) Vital Signs Temp Pulse Pulse Resp BP Pulse Ox 07/25/19 15:30 36.5 C 84 16 134/76 94 07/25/19 13:42 87 16 142/83 H 97 07/25/19 12:22 91 H 18 121/53 L 94 07/25/19 11:09 36.7 C 87 16 141/88 H 97 07/25/19 10:30 36.7 C 97 H 18 113/77 97 07/25/19 10:10 96 H 18 137/89 95 07/25/19 10:00 36.8 C 96 H 18 144/92 H 95 07/25/19 09:50 98 H 17 136/83 96 07/25/19 09:40 97 H 17 145/87 H 99 07/25/19 09:31 36.4 C L 96 H 20 142/91 H 94 07/25/19 05:42 37 C 88 18 148/94 H 94
[2019-07-25] MEDS: DOCUSATE SODIUM 100 MG CAP PO SCH (20:10)
[2019-07-25] MEDS ORDERED: SENNA 8.6 MG TAB PO SCH (21:00)
[2019-07-26 05:21] LABS: Hematocrit (blood only) 32.5 % (37-47); Hemoglobin 11.3 g/dL (12.0-16.0); Mean Corpuscular Hemoglobin 31.5 pg (25-34); Mean Corpuscular Hgb Conc 34.8 g/dL (32-36); Mean Corpuscular Volume 90.5 fL (80-100); Mean Platelet Volume 8.7 fL (7.4-10.4); Platelet Count 174 K/uL (130-400); RDW Coefficient of Variation 14.1 % (11.5-14.5); RDW Standard Deviation 47.2 fL (36.4-46.3); Red Blood Count 3.59 M/uL (4.2-5.4); White Blood Count 12.27 K/uL (4.8-10.8)
[2019-07-26] MEDS: KETOROLAC TROMETHAMINE 15 MG/ML VIAL IV SCH (05:29)
[2019-07-26 05:50] LABS: BUN Creatinine Ratio 16.1 (10-20); Calcium 8.6 mg/dl (8.5-10.1); Creatinine Clr Calc Pharmacy 57.2 ml/min; Est GFR (Non-African American) 63.8
[2019-07-26 07:09] VITALS: BP 149/78; PULSE 87; TEMP 98.4
[2019-07-26] MEDS ORDERED: MULTIVITAMIN TAB PO SCH (09:00)
[2019-07-26] MEDS ORDERED: SERTRALINE HCL 100 MG TABLET PO SCH (09:00)
[2019-07-26] MEDS ORDERED: PANTOprazole 40 MG TAB PO SCH (09:00)
[2019-07-26] MEDS ORDERED: ASPIRIN 81 MG ECTAB PO SCH (09:00)
[2019-07-26] MEDS: DOCUSATE SODIUM 100 MG CAP PO SCH (09:57)
--- NOTE | 2019-07-26 11:02 | Orthopedic Progress Note ---
Date of Service July 26, 2019 Assessment & Plan (1) Degenerative joint disease of knee, right: Status post right total knee arthroplasty POD#1 -Ancef x24 -DVT prophylaxis: Teds, SCDs, 81 mg ASA twice daily -Weight-bear as tolerates right lower extremity -PT/OT -Postoperative x-ray demonstrates a well aligned well fixed orthopedic prosthesis without evidence of fracture dislocation. -A.m. lab- hgb 11.3 -DC planning - home with HH Subjective Post Operative Progress Note Patient seen sitting sitting in chair at bedside, comfortable, denies complaints, pain well controlled, no acute issues. Denies F/C/N/V/SOP/CP Review of Systems Review of Systems: All systems reviewed & are unremarkable except as noted in HPI & below Constitutional: as per Subjective / HPI Physical Exam Physical Exam: RLE NVSI +EHL/FHL/TA/GS SILT grossly, +2 DP pulse, compartments soft NT, dressing cdi. Constitutional: WD/WN, vitals as above Results & Data Vital Signs (Past 12 Hours) Vital Signs Temp Pulse Resp BP Pulse Ox 07/26/19 07:08 36.9 C 87 16 149/78 H 95 07/26/19 03:00 36.8 C 86 16 128/78 94 07/26/19 00:01 37.0 C 87 16 130/80 95 Laboratory Results 07/26/19 07/26/19 Range/Units 05:09 05:09 WBC 12.27 H (4.8-10.8) K/uL RBC 3.59 L (4.2-5.4) M/uL Hgb 11.3 L (12.0-16.0) g/dL Hct 32.5 L (37-47) % MCV 90.5 (80-100) fL MCH 31.5 (25-34) pg MCHC 34.8 (32-36) g/dL RDW Std Deviation 47.2 H (36.4-46.3) fL RDW Coeff of Lucy 14.1 (11.5-14.5) % Plt Count 174 (130-400) K/uL MPV 8.7 (7.4-10.4) fL Sodium 129 L (136-145) mmol/L Potassium 4.0 (3.5-5.1) mmol/L Chloride 96 L (98-107) mmol/L Carbon Dioxide 25 (21-32) mmol/L Anion Gap 8.0 (3-11) BUN 14 (7-18) mg/dl Creatinine 0.89 (0.6-1.2) mg/dl Est Cr Clr Drug Dosing 57.2 ml/min Est GFR ( Amer) 74.0 Est GFR (Non-Af Amer) 63.8 BUN/Creatinine Ratio 16.1 (10-20) Glucose 124 H (70-99) mg/dl Calcium 8.6 (8.5-10.1) mg/dl
[2019-07-26] MEDS ORDERED: CeleBREX 200 MG CAP PO SCH (12:00)
[2019-07-26 12:06] VITALS: O2SAT 99
[2019-07-26] MEDS: OXYCODONE HCL IR 5 MG TAB (IMMEDIATE RELEASE) PO PRN ×2 (13:32→14:39)
--- NOTE | 2019-07-26 22:15 | Discharge Summary ---
Date of Service July 26, 2019 Admission HPI Per Admitting Provider The patient is a 74 year old female who presents with complaints of severe right knee pain and DJD. The patient has failed outpatient conservative treatments to this point which included NSAIDs, corticosteroid injections, PT/home exercise/walking program. The patient's pain and limited function have progressed to the point where they severely hinder their activities of daily living and they no longer tolerate exercise programs. They are requesting to proceed with total knee replacement surgery. Principal Diagnosis Right total knee replacement Discharge Exam RLE NVSI +EHL/FHL/TA/GS SILT grossly, +2 DP pulse, compartments soft NT, dressing cdi. Constitutional WD/WN, vitals as above Discharge Data Allergies Allergy/AdvReac Type Severity Reaction Status Date / Time hydrocodone Allergy Intermediate HIVES, ITCH Verified 07/25/19 06:02 oxycodone Allergy Intermediate HIVES, ITCH Verified 07/25/19 06:02 codeine Allergy Unknown NAUSEA, Verified 07/25/19 06:02 VOMITING, ITCHING morphine AdvReac Unknown SEVERE Verified 07/25/19 06:02 CONSTIPATION nitrofurantoin AdvReac Unknown N/V Verified 07/25/19 06:02 Consultations 07/25/19 10:36 Consult Case Management - Discharge Planning Routine Procedures Performed Operation Date: 07/25/19 07:15 Actual Procedures p Right Total Knee Arthroplasty(Right) - Farhan Blackmon DO Ordered Studies 07/25/19 05:00 US - OR guided needle placemen Routine Hospital Course (1) Degenerative joint disease of knee, right: The patient is a 74 -year-old female who presents with long standing history of severe right knee DJD and failed outpatient conservative treatments including NSAIDs, bracing, injections and home walking/exercise program. The patient's symptoms have progressed to the point where it has been difficult to perform even normal activities of daily living. I indicated the patient for a right total knee arthroplasty, the risks, benefits and complications of the procedure include but not limited to infection, bleeding, damage to bone, nerves, vessels, surrounding soft tissue, may develop blood clots, loss of function, leg length discrepancy, dislocation, failure of the components, loosening of the components, the need for additional surgery and . The patient wished to proceed with surgery at this time and informed consent was obtained. Hospital Course: On 07/25/19 the patient was taken to the operating room, adequate anesthesia administered and underwent a right total knee arthroplasty. The patient tolerated the procedure well and was taken to the PACU in stable condition. Post-operatively the patient was started on a DVT ppx medication and given appropriate IV antibiotics. Consults were placed to physical therapy, occupational therapy and case management. On POD#1, the patient did well overnight and their pain was well controlled. Labs were drawn and the Hgb was 11.3. The patient progressed well with PT. Dressings were changed at this time and the incision was clean, dry and intact. The patients hospital stay was relatively uneventful and they were deemed stable by the orthopedic team and consultants to be discharged home with HH on 07/26/19. Discharge Instructions: Upon discharge the patient may weight bear as tolerates through their operative extremity. They were instructed to keep the incision clean and dry at all times. The patient may shower but should not submerge the incision, avoid bathing, pools and hot tubes. The patient was given a script for pain m edication and should take as instructed. The patient was given a script for DVT ppx ASA 81mg BID and should take as directed. The patient was instructed to not drive or travel for long distances until cleared to do so. If the patient develops any symptoms of fevers, chills, nausea, vomiting, increased redness, swelling, pain or drainage from the surgical site, they should notify the office and/or proceed to the nearest emergency room. The patient should follow up in 10-14 days after surgery for their routine post-operative follow-up appointment and should call the office to confirm the date and time. Status post right total knee arthroplasty POD#1 -Ancef x24 -DVT prophylaxis: Teds, SCDs, 81 mg ASA twice daily -Weight-bear as tolerates right lower extremity -PT/OT -Postoperative x-ray demonstrates a well aligned well fixed orthopedic prosthesis without evidence of fracture dislocation. -A.m. lab- hgb 11.3 -DC planning - home with HH Total Time Total Time Spent Total Time Spent (In Minutes): 30 minutes Total Time Includes: Examination of the Patient, Discharge Planning, Medication Reconciliation and Communication With Other Providers Discharge Plan Discharge Items Patient Disposition: Home - Home Health Services Reason For Visit: Unilateral Primary Osteoarthritis, Right Knee Discharge Diagnosis: Right total knee replacement Condition on Discharge: Good Activity: Per Instructions section Lifting: Wait until after follow-up appointment Bathing: Keep incision dry Bathing Comment: No bathing, pools or hot tubs. Sexual Activity: Wait until after follow-up appointment Exercise/Sports: Wait until after follow-up appointment Driving/Machine Use: No driving Weightbearing: Full weightbearing Non-emergency contact: Primary Care Provider and Surgeon Call non-emergency contact if: you have any medication questions, your symptoms worsen, your pain is not controlled, your pain is worsening, your pain is unusual for you, your pain is concerning for you, you have a fever, your temperature is above 101, your wound has increased redness, your wound has increased drainage and your wound pain has increased Follow-up/Referrals: Harlan Tubbs MD [Primary Care Provider] - Diet: Regular Addtl Attending Provider Instructions: ACTIVITY RECOMMENDATIONS: SELF CARE INSTRUCTIONS AFTER TOTAL KNEE REPLACEMENT A. You may need to continue a physical therapy program after discharge from the hospital. There are several options available to you. Your doctor will assist you in selecting the best one for you. 1. An out-patient facility 2 to 3 times a week for therapy or home therapy. 2. Continue working on all exercises taught to you in the hospital. Your goals should be to increase bending of your knee to 90 degrees and beyond and to fully straighten your knee. B. You may progress at your own pace from walking with a walker or crutches to a cane; then to no assistive devices. C. Make walking a part of your daily routine. Be up as much as comfortable with rest periods throughout the day. Rest with leg elevation is very important. Use the ice wrap frequently for the first 3-4 weeks. D. There are no restrictions on activities. You may ride in a car, shop, participate in all source intelligence and all social activities. E. Wear the long elastic stockings (JANET hose) 20 hours a day for 2 weeks after surgery. They can be removed several times a day for laundering and for a bath. F. You may shower, no tub baths until cleared by your doctor. SPECIAL CARE INSTRUCTIONS: VERY IMPORTANT TO READ AND REVIEW A. There are a few signs you need to watch for after you are home. Call [facility] if you notice any of the followin. Increased severe knee pain. Some pain is expected especially when you exercise. 2. Increased swelling in your leg or knee; pain or swelling of the calf mu scle in either lower leg. 3. Any fluid drainage from the incision. 4. Shortness of breath or chest pain. B. Please call [facility] at if you have any concerns or questions about your operation or recovery. The doctor or his nurse will return your call promptly. C. You must take antibiotics before dental work, bladder, bowel or other surgery. Your doctor will provide you with a permanent care to carry describing this precaution. IMPORTANT: * REMEMBER TO TAKE ASPIRIN, 81 MG, TWICE DAILY FOR 4 WEEKS UNLESS OTHERWISE DIRECTED. THIS IS YOUR BLOOD THINNER. * HIGH RISK PATIENTS MAY BE PRESCRIBED A STRONGER BLOOD THINNER. THIS WILL BE PROVIDED AT DISCHARGE. * CALL IF INCREASED PAIN, REDNESS, DRAINAGE OR FEVER GREATER THAT 101. * WEAR JANET HOSE 20 HOURS PER DAY FOR 2 WEEKS. *DERMABOND Prineo- This is a mesh tape dressing that is covered with glue. It should remain in place until the incision is properly healed, usually 10-14 days. This dressing is designed to naturally slough off. You may trim the excess mesh tape as it peels off. Incision may be briefly wet in a shower. Dry immediately by blotting with a clean, dry towel. Do not bath or swim until instructed by your doctor. Do not scratch, rub, or pick at the dressing. Do not apply any topical ointments or lotions until dressing is completely removed and/or instructed by your doctor. There may be a small piece of suture material at one end of your incision. Do not pull or trim this. If it is bothersome or catching on clothing, you may cover it with a band-aid. IF INCISION IS LEAKING THROUGH DRESSING, CALL THE OFFICE . FOLLOW UP VISIT: If appointment is not already scheduled: Please call [facility] [place] [place] to make a follow-up appointment for 2 weeks after your surgery at . Pending Studies at Discharge: No Stand-Alone Forms: My [employer], Opioid Pain Management, Smoking Cessation Medications and DC Order Prescriptions: New diphenhydramine HCl [Benadryl] 25 mg Capsule 25 mg PO Q8H PRN (Reason: allergy symptoms) Qty: 30 RF: 0 celecoxib [Celebrex] 200 mg Capsule 200 mg PO BID PRN (Reason: pain/inflammation) Qty: 28 RF: 0 aspirin [Ecotrin Low Strength] 81 mg Tablet,Delayed Release (Dr/Ec) 81 mg PO BID 28 Days Qty: 56 RF: 0 oxycodone 5 mg Tablet 5 mg PO Q6H MDD 6 tabs PRN (Reason: pain) Qty: 30 RF: 0 Continued nitrofurantoin macrocrystal 100 mg capsule 100 mg PO BID Qty: 60 RF: 0 nitrofurantoin monohyd/m-cryst [Macrobid] 100 mg Capsule 100 mg PO HS RF: 0 calcium carbonate [Calcium 500] 500 mg calcium (1,250 mg) Tablet 500 mg PO QAM RF: 0 Prilosec OTC 20 mg Tablet,Delayed Release (Dr/Ec) 20 mg PO QAM RF: 0 sertraline 100 mg Tablet 200 mg PO QAM RF: 0 multivitamin Capsule 1 cap PO QAM RF: 0 cranberry 500 mg Capsule 500 mg PO TID RF: 0 alprazolam [Xanax] 0.5 mg Tablet 0.5 mg PO BID PRN (Reason: Anxiety) RF: 0 sennosides [Senokot] 8.6 mg Tablet 17.2 mg PO HS Qty: 30 RF: 0 Discharge Orders: Discharge Order (Routine); Ordered 07/26/19 Ordered By: Farhan Blackmon Admission Data Admit Date/Time: 07/25/19 09:39 Attending Provider: Farhan Blackmon Admit Provider: Farhan Blackmon Primary Care Provider: Harlan Tubbs Other Interventions: Discharge Summary Assessment (RN) Last Done: 07/26/19 13:18 DC Date/Time DO NOT enter until pt leaves facility: 07/26/19 14:45
== END 2019-07-26 14:45 | disposition home health service (06) | DRG 470 ==
LOC: ASU 05:03 → 3E 09:39